=== PATIENT | female | born 1945 | race Caucasian/White ===

== ENCOUNTER → 2016-08-22 | Outpatient (CLI) | payer OTHER | LOC: LAB 17:32 | PROVIDERS: ATTEND Internal Medicine Gastroenterology | DX: D64.89 Other specified anemias (principal) | CPT/HCPCS: 82270 ==

== ENCOUNTER 2016-11-23 07:15 | Day surgery (SDC) | payer OTHER ==
[2016-11-23] MEDS ORDERED: NS 1000 ML 1,000 ML ONE (07:38)
[2016-11-23] MEDS ORDERED: DIPRIVAN VIAL 20 ML ONE (09:11)
[2016-11-23] MEDS ORDERED: DIPRIVAN VIAL 10 ML ONE (09:40)
[2016-11-23 11:41] VITALS: BP 120/60
== END 2016-11-23 10:10 | disposition home or self-care (01) ==
LOC: SURG1 07:15
PROVIDERS: ATTEND Internal Medicine Gastroenterology
PROC: 0DJD8ZZ Inspection of Lower Intestinal Tract, Via Natural or Artificial Opening Endoscopic (ICD-10-PCS; principal; 2016-11-23 07:30)
PROC: 0DBM8ZX Excision of Descending Colon, Via Natural or Artificial Opening Endoscopic, Diagnostic (ICD-10-PCS; principal; 2016-11-23 07:30)
PROC: 0DBN8ZX Excision of Sigmoid Colon, Via Natural or Artificial Opening Endoscopic, Diagnostic (ICD-10-PCS; principal; 2016-11-23 07:30)
DX: K92.1 Melena (principal); Z80.0 Family history of malignant neoplasm of digestive organs; Z86.010 Personal history of colon polyps; K63.5 Polyp of colon; K64.0 First degree hemorrhoids
CPT/HCPCS: 99100; A4217; J3490

== ENCOUNTER → 2017-01-24 | Outpatient (CLI) | payer OTHER ==
--- NOTE | 2017-01-25 09:42 | MRI ---
STUDY: MRI OF THE BRAIN WITHOUT GADOLINIUM HISTORY: Tremors. Blurred vision. Technique: Multiplanar multi-sequence MRI of the brain was obtained utilizing standard departmental p rotocol. Sagittal and axial T1, axial T2, FLAIR, diffusion (DWI/ADC) images through the brain were pe rformed. Comparison: None. Findings: The sulci, cisterns and ventricles are prominent consistent with diffuse volume loss. There are confl uent and scattered foci of T2 prolongation in the periventricular and subcortical white matter of bot h hemispheres. This is a nonspecific finding which likely represents microangiopathic change in a pat ient of this age. There are old lacunar infarcts versus prominent [place]ny spaces in the right posterior putamen a nd right thalamus. There is no evidence of acute territorial infarction, hemorrhage, mass, mass effec t, or midline shift. There are no abnormal intra-axial or extra-axial fluid collections. The major intracranial vascular flow voids appear intact. The vertebral arteries are codominent. Ther e is bilateral aphakia. IMPRESSION: 1. No evidence of acute intracranial abnormality. 2. Old lacunar infarcts versus prominent Virchow Tonny spaces in the right putamen and right thalamu s. 3. Nonspecific white matter change and volume loss. Reported By:
== END ==
LOC: RAD 15:25
PROVIDERS: ATTEND Psychiatry & Neurology Neurology
DX: R25.1 Tremor, unspecified (principal)
CPT/HCPCS: 70551

== ENCOUNTER → 2017-01-29 | Outpatient (CLI) | payer OTHER | LOC: RAD 14:00 | PROVIDERS: ATTEND Psychiatry & Neurology Neurology | DX: R25.1 Tremor, unspecified (principal) | CPT/HCPCS: 95819 ==

== ENCOUNTER 2022-05-09 14:19 | Observation (INO) ==
[2022-05-09] MEDS ORDERED: NS 500 ML IV 500 ML IV ONE ×4 (14:36→16:21)
--- NOTE | 2022-05-09 14:38 | DR.GENAD ---
HPI Time Seen Time Seen by Provider: 05/09/22 14:35 Complaint/Symptoms Chief Complaint Doctors Comments: 77 y/o female brought in for evaluation. Has a recent left humerus fracture. Her sister wasw taking her to the orthopedist, pt was speaking gibberish. She could think of what she wanted to say, but wasn't able to say it. Lasted several minutes. Better now. Denies headache, fever, chills, URI symptoms, nausea, vomiting, diarrhea or urinary difficulties. Pt lives by herself, states she can't live alone anymore. Sister lives across the street, feels the pt is worrying all the time. Nurses notes reviewed Nurses Notes Review: Yes Source History Provided: Patient and Family Member Mode of Arrival Mode of Arrival: Wheelchair PMH PMH Past Medical History: Anxiety, Arthritis, Diabetes, Dyslipidemia, GERD, Hypertension and Hypothyroidism Past Surgical History: Yes Surgical History: Cholecystectomy, Hysterectomy and Other Family History Family Medical History: Diabetes Mellitus Social History Do you use any recreational Drugs:: No ROS Review of Systems Constitutional: Weakness Eyes: No Symptoms Reported ENTM: No Symptoms Reported Respiratoy: No Symptoms Reported Cardiovascular: No Symptoms Reported Gastrointestinal/Abdominal: No Symptoms Reported Genitourinary: No Symptoms Reported Neurological: Speech Problem Musculoskeletal: No Symptoms Reported Integumentary: No Symptoms Reported Hematologic/Lymphatic: No Symptoms Reported All Other Systems: Reviewed and Negative PE Vital Signs Vitals: Temperature 97.7 F Pulse Rate 87 Respiratory Rate 45 Blood Pressure [Left Arm] 116/70 Blood Pressure 132/59 O2 Sat by Pulse Oximetry 100 General General Appearance: Alert and In No Apparent Distress Head Head Exam: Normal Inspection Eyes Eye exam: PERRL and EOMI ENT ENT Exam: Normal Oropharynx and Mucous Membranes Moist Neck Neck Exam: Normal Inspection and Full ROM; negative Tenderness Respiratory Respiratory Exam: Normal Lung Sounds Bilat; negative Accessory Muscle Use or Respiratory Distress Cardiovascular Cardiovascular Exam: Regular Rate, Normal Rhythm and Normal Heart Sounds Abdominal Exam Abdominal Exam: Normal Bowel Sounds and Soft; negative Tenderness Extremities Extremities Exam: Other (LUE in sling for humerus fracture. ); negative Edema Neurologic Neurological Exam: Alert, Oriented X3 and CN II-XII Intact; negative Motor Sensory Deficit Skin Skin Exam: Warm and Dry COURSE Treatment Treatment: 77 y/o female with recent L humerus fracture, had what sounds like a TIA earlier today. Was having degree of expressive aphasia, resolved now. BP was a bit low on arrival, pt admits to not eating or drinking well. Was given IV fluids, W/u initiated. 1637 - Pt's glucose poorly controlled at 362, was given 4 U regular insulin SC. BP higher after IV fluid bolus given, additional IV fluids given. Pt states she cannot live by herself anymore, would like to be admitted for rehab services. Discussed with her attending, Dr Mckenna. He will admit for glucose control, hydration, and pursue w/u for possible TIA/CVA. ROR Labs Reviewed Laboratory Results Reviewed?: Yes Result Diagrams: 05/09/22 14:50 05/09/22 14:50 Laboratory: WBC 8.3 X10^3/uL (3.6-10.0) 05/09/22 14:50 RBC 3.32 X10^6/uL (3.5-5.4) L 05/09/22 14:50 Hgb 9.9 g/dL (12.0-16.0) L 05/09/22 14:50 Hct 30.0 % (36.0-47.0) L 05/09/22 14:50 MCV 90.2 fL (80.0-100.0) 05/09/22 14:50 MCH 29.9 pg (27.0-34.0) 05/09/22 14:50 MCHC 33.2 g/dL (33.0-35.0) 05/09/22 14:50 RDW 14.5 % (11.6-16.5) 05/09/22 14:50 Plt Count 389 X10^3/uL (150.0-450.0) 05/09/22 14:50 MPV 8.1 fL (7.4-11.0) 05/09/22 14:50 Neut % (Auto) 79.9 % (42.0-75.0) H 05/09/22 14:50 Lymph % (Auto) 11.0 % (21.0-51.0) L 05/09/22 14:50 [place] % (Auto) 8.2 % (0.0-13.0) 05/09/22 14:50 Eos % (Auto) 0.1 % (0.9-2.9) L 05/09/22 14:50 Baso % (Auto) 0.8 % (0.2-1.0) 05/09/22 14:50 Neut # (Auto) 6.6 x10^3/uL (2.2-4.8) H 05/09/22 14:50 Lymph # (Auto) 0.9 X10^3/uL (1.3-2.9) L 05/09/22 14:50 [place] # (Auto) 0.7 x10^3/uL (0.3-0.8) 05/09/22 14:50 Eos # (Auto) 0.0 x10^3/uL (0.0-0.2) 05/09/22 14:50 Baso # (Auto) 0.1 X10^3/uL (0.0-0.1) 05/09/22 14:50 Absolute Nucleated RBC 0.0 /100WBC 05/09/22 14:50 Sample Site Rb 05/09/22 16:18 ABG pH 7.550 (7.35-7.45) H 05/09/22 16:18 ABG pCO2 24.0 mmHg (35.0-45.0) L 05/09/22 16:18 ABG pO2 106.0 mmHg (80.0-100.0) H 05/09/22 16:18 ABG HCO3 21.0 mmol/L (22-26) L 05/09/22 16:18 ABG O2 Saturation 99.0 % (90-100) 05/09/22 16:18 ABG Base Excess 0.0 mmol/L (-2.0-2.0) 05/09/22 16:18 Gelacio Test Pos 05/09/22 16:18 A-a Gradient 14.0 mmHg 05/09/22 16:18 FiO2 21.0 05/09/22 16:18 Blood Gas Comments . sd 05/09/22 16:18 Sodium 132 mmol/L (136-145) L 05/09/22 14:50 Corrected Sodium 138 mmol/L (136-145) 05/09/22 14:50 Potassium 3.7 mmol/L (3.5-5.1) 05/09/22 14:50 Chloride 97 mmol/L (98-107) L 05/09/22 14:50 Carbon Dioxide 20.3 mmol/L (21-32) L 05/09/22 14:50 BUN 16 mg/dL (7-18) 05/09/22 14:50 Creatinine 1.23 mg/dL (0.55-1.02) H 05/09/22 14:50 Est GFR (MDRD) Af Amer 55 (>60) L 05/09/22 14:50 Est GFR (MDRD) Non-Af 45 (>60) L 05/09/22 14:50 Glucose 362 mg/dL (65-99) H 05/09/22 14:50 POC Glucose (mg/dL) 334 mg/dL (65-99) H 05/09/22 14:40 Calcium 8.5 mg/dL (8.5-10.1) 05/09/22 14:50 Corrected Calcium 9.6 mg/dL (8.5-10.1) 05/09/22 14:50 Total Bilirubin 0.70 mg/dL (0.2-1.0) 05/09/22 14:50 AST 60 Units/L (15-37) H 05/09/22 14:50 ALT 43 Units/L (12-78) 05/09/22 14:50 Alkaline Phosphatase 82 Units/L (46-116) 05/09/22 14:50 Troponin I High Sens 6.8 ng/L (4.0-60.0) 05/09/22 14:50 Total Protein 6.5 g/dL (6.4-8.2) 05/09/22 14:50 Albumin 2.6 g/dL (3.4-5.0) L 05/09/22 14:50 Globulin 3.9 g/dL (2.5-4.5) 05/09/22 14:50 Albumin/Globulin Ratio 0.7 Ratio (1.1-2.1) L 05/09/22 14:50 Lipase 144 Units/L (73-393) 05/09/22 14:50 Specimen Type Catherized urine 05/09/22 15:30 Urine Color Yellow (YELLOW) 05/09/22 15:30 Urine Appearance Clear (CLEAR) 05/09/22 15:30 Urine pH 5.0 (5.0 - 8.0) 05/09/22 15:30 Ur Specific Melba 1.015 (1.000-1.030) 05/09/22 15:30 Urine Protein Negative (NEGATIVE) 05/09/22 15:30 Urine Glucose (UA) 4+ (NEGATIVE) 05/09/22 15:30 Urine Ketones 3+ (NEGATIVE) 05/09/22 15:30 Urine Blood Negative (NEGATIVE) 05/09/22 15:30 Urine Nitrite Negative (NEGATIVE) 05/09/22 15:30 Urine Bilirubin Negative (NEGATIVE) 05/09/22 15:30 Urine Urobilinogen Normal (NORMAL) 05/09/22 15:30 Ur Leukocyte Esterase Negative (NEGATIVE) 05/09/22 15:30 glucose 362. U/a - + for ketones, glucose. EKG Rate: 91 [place]: Normal Rhythm: NSR Block: None Hypertrophy: None ST: Normal Opioid Opioid Risk Tool Age (Tyree box if 16-45): No History of Preadolescent Sexual Abuse: No Total: 0 Total Score Risk Category: Low Risk Copyright: [facility] predicting aberrant behaviors Discharge Plan Diagnosis Discharge Problem: Poorly controlled diabetes mellitus, Dehydration Discharge Plan Patient Disposition: ADMITTED INPATIENT Condition: Stable
[2022-05-09 14:44] VITALS: BMI 31.9
[2022-05-09 15:00] LABS: BASOPHILS # (AUTO) 0.1 X10^3/uL (0.0-0.1); BASOPHILS % (AUTO) 0.8 % (0.2-1.0); EOSINOPHILS % (AUTO) 0.1 % (0.9-2.9); HEMOGLOBIN 9.9 g/dL (12.0-16.0); LYMPHOCYTES # (AUTO) 0.9 X10^3/uL (1.3-2.9); MEAN CORPUSCULAR HEMOGLOBIN 29.9 pg (27.0-34.0); MEAN CORPUSCULAR HGB CONC 33.2 g/dL (33.0-35.0); MEAN CORPUSCULAR VOLUME 90.2 fL (80.0-100.0); MEAN PLATELET VOLUME 8.1 fL (7.4-11.0); MONOCYTES # (AUTO) 0.7 x10^3/uL (0.3-0.8); MONOCYTES % (AUTO) 8.2 % (0.0-13.0); NEUTROPHILS # (AUTO) 6.6 x10^3/uL (2.2-4.8); NEUTROPHILS % (AUTO) 79.9 % (42.0-75.0); RED BLOOD COUNT 3.32 X10^6/uL (3.5-5.4); RED CELL DISTRIBUTION WIDTH 14.5 % (11.6-16.5); WHITE BLOOD COUNT 8.3 X10^3/uL (3.6-10.0)
--- NOTE | 2022-05-09 15:04 | EKG ---
Test Reason : altered ms Blood Pressure : */* mmHG Vent. Rate : 91 BPM Atrial Rate : 91 BPM P-R Int : 142 ms QRS Dur : 84 ms QT Int : 326 ms P-R-T Axes : 57 24 17 degrees QTc Int : 400 ms Normal sinus rhythm Normal ECG No previous ECGs available Confirmed by Theodore Rios ([id number]) on 05/16/2022 5:56:51 PM Referred By: Confirmed By: Theodore Rios
[2022-05-09 15:13] LABS: ALBUMIN 2.6 g/dL (3.4-5.0); CALCIUM 8.5 mg/dL (8.5-10.1); CARBON DIOXIDE 20.3 mmol/L (21-32); COR CA(FOR HYPOALB) 9.6 mg/dL (8.5-10.1); CREATININE 1.23 mg/dL (0.55-1.02); TOTAL PROTEIN 6.5 g/dL (6.4-8.2)
[2022-05-09 15:56] LABS: BILIRUBIN,URINE NEGATIVE (NEGATIVE); BLOOD/HEMOGLOBIN,URINE NEGATIVE (NEGATIVE); GLUCOSE, URINE 4+ (NEGATIVE); KETONES,URINE 3+ (NEGATIVE); LEUKOCYTE ESTERASE ,URINE NEGATIVE (NEGATIVE); NITRITES,URINE NEGATIVE (NEGATIVE); PROTEIN,URINE NEGATIVE (NEGATIVE); UROBILINOGEN,URINE NORMAL (NORMAL)
[2022-05-09 16:04] LABS: APPEARANCE,URINE CLEAR (CLEAR); COLOR,URINE YELLOW (YELLOW)
[2022-05-09] MEDS ORDERED: NovoLIN R (or HumuLIN R) SUBCUT ONE (16:18)
[2022-05-09] MEDS ORDERED: NovoLIN R (or HumuLIN R) ONE ×2 (16:21→16:22)
--- NOTE | 2022-05-09 16:55 | CT ---
HISTORYAltered mental statusSTUDYCT brain without contrastCOMPARISONNoneTECHNIQUEMultiple axial images of the brain were obtained from the skull base to the vertex [without] administration of IV contrast.Dose reduction techniques including Automated Exposure Control (AEC) and adjustment of mA and kV were utlized.FINDINGS[No acute intraparenchymal hemorrhage or mass can be identified.] [No extra-axial fluid collections are seen.] [No alteration in the attenuation of the brain parenchyma can be identified to suggest acute or subacute ischemic change.] Mild small vessel ischemic changes and age-appropriate atrophy are noted. There is an old lacunar infarct versus perivascular space in the right basal ganglia. [The ventricular system is symmetric and nondilated.] [Small left mastoid air cell effusion is notedIMPRESSION[No acute intracranial process can be identified.]Electronically signed by: KRYS VINCENT (May 09, 2022 16:53:07)
--- NOTE | 2022-05-09 16:55 | RAD ---
HISTORYRelevant Clinical Information ALTERED MENTAL STATUSSTUDYCHEST, 1 VIEWCOMPARISONAugust FINDINGSThe trachea is midline. The cardiac silhouette is stable. The lungs are clear without focal infiltrate or effusion. The bony thorax is unremarkable.IMPRESSIONNo acute cardiopulmonary disease.Electronically signed by: KRYS VINCENT (May 09, 2022 16:53:33)
[2022-05-09 17:01] LABS: ABG ALLEN TEST POS
[2022-05-09] MEDS ORDERED: NovoLIN R (or HumuLIN R) SUBCUT PRN (17:39)
[2022-05-09] MEDS: NS 1,000 ML IV 1,000 ML IV SCH (18:23)
[2022-05-09] MEDS: SNACK - Diabetic Appropriate PO SCH (20:21)
[2022-05-09] MEDS ORDERED: KLOR-CON PO PRN (23:25)
[2022-05-09] MEDS ORDERED: POTASSIUM CHLORIDE LIQ 20 MEQ UDC PO PRN (23:25)
[2022-05-09] MEDS ORDERED: MICRO K EXTEN CAP 10 MEQ PO PRN (23:25)
[2022-05-09] MEDS ORDERED: K-RIDER 10 MEQ/NS 100 ML 10 MEQ/100 ML BAG IV PRN (23:25)
[2022-05-09] MEDS ORDERED: K-DUR TAB 20 MEQ PO PRN (23:25)
[2022-05-10 06:10] LABS: RED CELL DISTRIBUTION WIDTH 14.8 % (11.6-16.5)
[2022-05-10 06:14] LABS: BASOPHILS # (AUTO) 0.1 X10^3/uL (0.0-0.1); BASOPHILS % (AUTO) 1.1 % (0.2-1.0); EOSINOPHILS # (AUTO) 0.1 x10^3/uL (0.0-0.2); EOSINOPHILS % (AUTO) 1.2 % (0.9-2.9); HEMATOCRIT 26.4 % (36.0-47.0); LYMPHOCYTES # (AUTO) 1.6 X10^3/uL (1.3-2.9); LYMPHOCYTES % (AUTO) 30.7 % (21.0-51.0); MEAN CORPUSCULAR HEMOGLOBIN 30.2 pg (27.0-34.0); MEAN CORPUSCULAR HGB CONC 34.1 g/dL (33.0-35.0); MEAN CORPUSCULAR VOLUME 88.6 fL (80.0-100.0); MEAN PLATELET VOLUME 8.1 fL (7.4-11.0); MONOCYTES # (AUTO) 0.5 x10^3/uL (0.3-0.8); MONOCYTES % (AUTO) 10.1 % (0.0-13.0); NEUTROPHILS % (AUTO) 56.9 % (42.0-75.0); RED BLOOD COUNT 2.98 X10^6/uL (3.5-5.4); WHITE BLOOD COUNT 5.2 X10^3/uL (3.6-10.0)
[2022-05-10 06:18] LABS: ALANINE AMINOTRANSFERASE 33 Units/L (12-78); ALBUMIN 2.2 g/dL (3.4-5.0); ALKALINE PHOSPHATASE 75 Units/L (46-116); ASPARTATE AMINO TRANSFERASE 40 Units/L (15-37); BLOOD UREA NITROGEN 12 mg/dL (7-18); CALCIUM 7.8 mg/dL (8.5-10.1); CARBON DIOXIDE 23.3 mmol/L (21-32); CHLORIDE 105 mmol/L (98-107); COR CA(FOR HYPOALB) 9.2 mg/dL (8.5-10.1); COR NA(FOR HYPERGLY) 140 mmol/L (136-145); CREATININE 0.91 mg/dL (0.55-1.02); MAGNESIUM 0.6 mg/dL (2.0-2.9); SODIUM 139 mmol/L (136-145); TOTAL PROTEIN 5.6 g/dL (6.4-8.2); eGFR NON BLACK RACES > 60 (>60)
[2022-05-10] MEDS: NS 1,000 ML IV 1,000 ML IV SCH ×2 (06:24→21:27)
[2022-05-10] MEDS ORDERED: SITAGLIPTIN PHOS METFORMIN PO SCH (09:00)
[2022-05-10] MEDS ORDERED: [UNRECOGNIZED DRUG - OTHER] PO SCH (09:00)
[2022-05-10] MEDS: JANUVIA PO SCH (14:56)
[2022-05-10] MEDS: TRICOR TAB 145 MG PO SCH (14:56)
[2022-05-10] MEDS: SYNTHROID 50 mcg TAB PO SCH (14:56)
[2022-05-10] MEDS: PROTONIX TAB 40 MG PO SCH (14:57)
[2022-05-10] MEDS: GLUCOPHAGE XR 24-HR PO SCH (14:57)
[2022-05-10] MEDS: OXYBUTYNIN CHLORIDE ER PO SCH (14:57)
[2022-05-10] MEDS: FOLIC ACID TAB 1 MG PO SCH (14:57)
[2022-05-10] MEDS: SNACK - Diabetic Appropriate PO SCH (21:00)
[2022-05-10] MEDS: MAGNESIUM SULFATE 1 GRAM/100 mL PREMIX 1 G/100 ML BAG IV PRN ×3 (21:21→23:31)
[2022-05-10] MEDS: LIPITOR TAB 40 MG PO SCH (21:22)
[2022-05-10] MEDS: ZESTRIL TAB 5 MG PO SCH (21:22)
[2022-05-11] MEDS: MAGNESIUM SULFATE 1 GRAM/100 mL PREMIX 1 G/100 ML BAG IV PRN ×7 (00:36→07:05)
[2022-05-11 06:11] LABS: BASOPHILS # (AUTO) 0.1 X10^3/uL (0.0-0.1); BASOPHILS % (AUTO) 1.1 % (0.2-1.0); EOSINOPHILS # (AUTO) 0.1 x10^3/uL (0.0-0.2); EOSINOPHILS % (AUTO) 1.7 % (0.9-2.9); HEMATOCRIT 28.1 % (36.0-47.0); HEMOGLOBIN 9.4 g/dL (12.0-16.0); LYMPHOCYTES # (AUTO) 1.5 X10^3/uL (1.3-2.9); LYMPHOCYTES % (AUTO) 24.5 % (21.0-51.0); MEAN CORPUSCULAR HEMOGLOBIN 29.8 pg (27.0-34.0); MEAN CORPUSCULAR HGB CONC 33.3 g/dL (33.0-35.0); MEAN CORPUSCULAR VOLUME 89.4 fL (80.0-100.0); MEAN PLATELET VOLUME 8.6 fL (7.4-11.0); MONOCYTES # (AUTO) 0.5 x10^3/uL (0.3-0.8); MONOCYTES % (AUTO) 8.8 % (0.0-13.0); NEUTROPHILS # (AUTO) 3.8 x10^3/uL (2.2-4.8); NEUTROPHILS % (AUTO) 63.9 % (42.0-75.0); RED BLOOD COUNT 3.14 X10^6/uL (3.5-5.4)
[2022-05-11 06:13] LABS: ALANINE AMINOTRANSFERASE 35 Units/L (12-78); ALBUMIN 2.2 g/dL (3.4-5.0); ALKALINE PHOSPHATASE 100 Units/L (46-116); ASPARTATE AMINO TRANSFERASE 44 Units/L (15-37); BLOOD UREA NITROGEN 9 mg/dL (7-18); CALCIUM 8.2 mg/dL (8.5-10.1); CARBON DIOXIDE 25.1 mmol/L (21-32); CHLORIDE 106 mmol/L (98-107); COR CA(FOR HYPOALB) 9.6 mg/dL (8.5-10.1); COR NA(FOR HYPERGLY) 141 mmol/L (136-145); CREATININE 0.82 mg/dL (0.55-1.02); SODIUM 138 mmol/L (136-145); TOTAL PROTEIN 5.8 g/dL (6.4-8.2); eGFR NON BLACK RACES > 60 (>60)
[2022-05-11] MEDS: JANUVIA PO SCH (08:54)
[2022-05-11] MEDS: FOLIC ACID TAB 1 MG PO SCH (08:54)
[2022-05-11] MEDS: SYNTHROID 50 mcg TAB PO SCH (08:55)
[2022-05-11] MEDS: PROTONIX TAB 40 MG PO SCH (08:55)
[2022-05-11] MEDS: TRICOR TAB 145 MG PO SCH (08:55)
[2022-05-11] MEDS: NS 1,000 ML IV 1,000 ML IV SCH ×2 (08:57→20:52)
[2022-05-11] MEDS: GLUCOPHAGE XR 24-HR PO SCH (08:57)
[2022-05-11] MEDS: OXYBUTYNIN CHLORIDE ER PO SCH (08:58)
--- NOTE | 2022-05-11 11:19 | DR.H&P ---
H&P - History & Physical for Day of: H&P Date: 05/09/22 - Chief Complaint Chief Complaint: FREQUENT FALLS, WEAKNESS, AMS, SLURRED SPEECH - History of Present Illness History of Present Illness: IS A 77 YEAR OLD PATIENT OF OURS. SHE PRE SENTED TO THE ER WITH COMPLAINTS OF FREQUENT FALLS, WEAKNESS, ALTERED MENTAL STATUS, AND SLURRED SPEECH. PATIENTS FAMILY MEMBER REPORTS THAT THE EPISODE OF AMS AND SLURRED SPEECH LASTED FOR SEVERAL MINUTES. THEY REPORT THAT SHE HAD DIFFICULTY FORMING HER WORDS. IT HAS NOW RESOLVED. PATIENT DENIES HEADACHE, FEVER, CHILLS, URI SYMPTOMS, NAUSE, VOMITING, DIARRHEA, OR URINARY DIFFICULTIES. PATIENT IS NOTED TO HAVE A SLING ON THE LEFT ARM. SHE REPORTS HAVING A RECENT LEFT HUMERUS FRACTURE. HER PMH INCLUDES ANXIETY, ARTHRITIS, DM II, DYSLIPIDEMIA, GERD, HTN, HYPOTHYROIDISM, CHOLECYSTECTOMY, AND HYSTERECTOMY. ON ARRIVAL TO THE ER, VITALS WERE: 97.7-115-20-98%-88/52. LABS WERE OBTAINED. WBC 8.3, RBC 3.32, HGB 9.9, HCT 30.0, SODIUM 132, POTASSIUM 3.7, CHLORIDE 97, CARBON DIOXIDE 20.3, BUN 16, CREATININE 1.23, GLUCOSE 362, CALCIUM 8.5, TOTAL BILI 0.70, AST 60, ALT 43, ALK PHOS 82, TOTAL PROTEIN 6.5, ALBUMIN 2.6. ABG OBTAINED AND REVEALED: PH 7.550, PC02 24, P02 106, HC03 21.0, 02 SAT 99, FI02 21.0. URINALYSIS OBTAINED AND REVEALED: GLUCOSE 4+, KETONES 3+, OTHERWISE NORMAL. A CHEST XRAY WAS OBTAINED AND REVEALED NO ACUTE CARDIOPULMONARY DISEASE. A BRAIN CT WAS OBTAINED AND REVEALED: No acute intraparenchymal hemorrhage or mass can be identified. No extra-axial fluid collections are seen. No alteration in the attenuation of the brain parenchyma can be identified to suggest acute or subacute ischemic change.] Mild small vessel ischemic changes and age-appropriate atrophy are noted. There is an old lacunar infarct versus perivascular space in the right basal ganglia. The ventricular system is symmetric and nondilated. Small left mastoid air cell effusion is noted. SHE WAS ADMITTED TO THE HOSPITAL FOR FURTHER EVALUATION AND TREATMENT OF DEHYDRATION, UNCONTROLLED DM II, AND TIA. SHE WAS STARTED ON NORMAL SALINE AT 80 ML/HR, THE POTASSIUM AND MAGNESIUM PROTOCOLS, HUMULIN R SLIDING SCALE, OTBS ACHS. HER HOME MEDICATIONS OF LIPITOR, TRICOR, FOLIC ACID, SYNTHROID, ZESTRIL, GLUCOPHAGE, OXYBUTYNIN, PROTONIX, AND JANUVIA WERE RESUMED. WE PLAN TO FOLLOW-UP WITH AM LABS AND CONTINUE TO MONITOR. TIME SPENT ON CLINICAL ASSESSMENT, REVIWING LABS AND IMAGING, DECISION MAKING, AND DOCUMENTATION GREATER THAN 75 MINUTES. - Past Medical History Past Medical History: Hypertension, Dyslipidemia, Diabetes, Anxiety, Hypothyroidism, GERD, Arthritis - Past Surgical History Surgical History: Cholecystectomy, Hysterectomy - Family History Family Medical History: Diabetes Mellitus - Social History Does patient currently use any type of tobacco product: No Have you used tobacco products in the last 12 months: No Type of Tobacco Use: None Does any household member use tobacco: No Alcohol Use: None Drug Use: None - Medications Home Medications: No Known Drug Allergies Allergy (Verified 01/26/20 17:57) CONTINUE taking the following medications dapagliflozin 10 mg tablet (Farxiga) 1 tab PO QDAY 05/09/22 [History] - Review of Systems Constitutional: Weakness Eyes: No Symptoms Reported ENT: No Symptoms Reported Respiratory: No Symptoms Reported Cardiovascular: No Symptoms Reported Gastrointestinal: No Symptoms Reported Genitourinary: No Symptoms Reported Musculoskeletal: See HPI, Arm Pain Skin: No Symptoms Reported Neurological: See HPI, Weakness, Change in Speech, Confusion - Physical Exam Vital Signs: Temperature 98.0 F Pulse Rate [Right Brachial] 96 Pulse Rate 93 Respiratory Rate 20 Blood Pressure [Right Arm] 148/62 Blood Pressure [Left Arm] 116/70 Blood Pressure 132/59 O2 Sat by Pulse Oximetry 98 Oriented: Normal Eyes: Normal Ear: Normal Nose: Normal Throat: Normal Respiratory: Clear Throughout Cardiovascular: Tachycardia : Normal Auscultation: Bowel Sounds: Normal Palpation: Normal Skin: Normal Musculoskeletal: Left, Arm, Tender (RECENT LEFT HUMERUS FX ) Psychiatric: Normal Mood Description: Calm Affect: Normal Speech Pattern: Clear - Assessment/Plan (1) Dehydration Status: Acute Plan: ADMIT, NORMAL SALINE AT 80 ML/HR, THE POTASSIUM AND MAGNESIUM PROTOCOLS, HUMULIN R SLIDING SCALE, OTBS ACHS. HER HOME MEDICATIONS OF LIPITOR, TRICOR, FOLIC ACID, SYNTHROID, ZESTRIL, GLUCOPHAGE, OXYBUTYNIN, PROTONIX, AND JANUVIA WERE RESUMED. (2) Generalized weakness Status: Acute (3) Frequent falls Status: Acute (4) TIA (transient ischemic attack) Status: Acute (5) Diabetes mellitus type 2, uncontrolled Qualifiers: Glycemic state: with hyperglycemia Qualified Code(s): E11.65 - Type 2 diabetes mellitus with hyperglycemia Status: Chronic - Allergies Allergies/Adverse Reactions: Allergies Allergy/AdvReac Type Severity Reaction Status Date / Time No Known Drug Allergies Allergy Verified 01/26/20 17:57
--- NOTE | 2022-05-11 11:34 | CT ---
HISTORY:AMS, slurred speech, weaknessStudy: CT brain without contrastComparison:05/09/2022Technique:Multiple axial images of the brain were obtained without administration of IV contrast. Dose reduction techniques including Automated Exposure Control (AEC) and adjustment of mA and kV were utilized.Findings:There is cerebral volume loss with nonspecific white matter hypoattenuation that can be associated with chronic microvascular ischemic changes. There is a chronic right subinsular hypodensities suggesting lacunar infarct or dilated perivascular space. No evidence of acute hemorrhage, midline shift, mass effect or abnormal extra-axial fluid collection. The ventricular system is symmetric and nondilated.The soft tissues and osseous structures are unremarkable. The visualized paranasal sinuses are clear.IMPRESSION:Cerebral volume loss and microvascular ischemic changes as described. No acute intracranial hemorrhage.Electronically signed by: FRANK GHOTRA (May 11, 2022 11:32:25)
[2022-05-11] MEDS: LIPITOR TAB 40 MG PO SCH (20:53)
[2022-05-11] MEDS: ZESTRIL TAB 5 MG PO SCH (20:53)
[2022-05-11] MEDS: SNACK - Diabetic Appropriate PO SCH (20:54)
[2022-05-12 05:15] LABS: BASOPHILS % (AUTO) 0.6 % (0.2-1.0); EOSINOPHILS # (AUTO) 0.2 x10^3/uL (0.0-0.2); EOSINOPHILS % (AUTO) 2.9 % (0.9-2.9); HEMOGLOBIN 10.3 g/dL (12.0-16.0); LYMPHOCYTES # (AUTO) 1.8 X10^3/uL (1.3-2.9); LYMPHOCYTES % (AUTO) 28.9 % (21.0-51.0); MEAN CORPUSCULAR HEMOGLOBIN 29.9 pg (27.0-34.0); MEAN CORPUSCULAR HGB CONC 33.1 g/dL (33.0-35.0); MEAN CORPUSCULAR VOLUME 90.2 fL (80.0-100.0); MONOCYTES # (AUTO) 0.4 x10^3/uL (0.3-0.8); MONOCYTES % (AUTO) 6.9 % (0.0-13.0); NEUTROPHILS # (AUTO) 3.8 x10^3/uL (2.2-4.8); NEUTROPHILS % (AUTO) 60.7 % (42.0-75.0); RED BLOOD COUNT 3.43 X10^6/uL (3.5-5.4); WHITE BLOOD COUNT 6.2 X10^3/uL (3.6-10.0)
[2022-05-12 05:31] LABS: ALANINE AMINOTRANSFERASE 42 Units/L (12-78); ALBUMIN 2.4 g/dL (3.4-5.0); ALKALINE PHOSPHATASE 123 Units/L (46-116); ASPARTATE AMINO TRANSFERASE 44 Units/L (15-37); BLOOD UREA NITROGEN 9 mg/dL (7-18); CALCIUM 8.3 mg/dL (8.5-10.1); CARBON DIOXIDE 26.4 mmol/L (21-32); CHLORIDE 108 mmol/L (98-107); COR CA(FOR HYPOALB) 9.6 mg/dL (8.5-10.1); COR NA(FOR HYPERGLY) 145 mmol/L (136-145); CREATININE 0.91 mg/dL (0.55-1.02); MAGNESIUM 1.6 mg/dL (2.0-2.9); SODIUM 143 mmol/L (136-145); TOTAL PROTEIN 6.2 g/dL (6.4-8.2); eGFR NON BLACK RACES > 60 (>60)
[2022-05-12] MEDS: MAGNESIUM SULFATE 1 GRAM/100 mL PREMIX 1 G/100 ML BAG IV PRN ×2 (09:06→10:24)
[2022-05-12] MEDS: JANUVIA PO SCH (09:07)
[2022-05-12] MEDS: SYNTHROID 50 mcg TAB PO SCH (09:07)
[2022-05-12] MEDS: PROTONIX TAB 40 MG PO SCH (09:07)
[2022-05-12] MEDS: TRICOR TAB 145 MG PO SCH (09:07)
[2022-05-12] MEDS: FOLIC ACID TAB 1 MG PO SCH (09:07)
[2022-05-12] MEDS: GLUCOPHAGE XR 24-HR PO SCH (09:07)
[2022-05-12] MEDS: OXYBUTYNIN CHLORIDE ER PO SCH (09:08)
[2022-05-12] MEDS: NS 1,000 ML IV 1,000 ML IV SCH ×2 (09:09→09:38)
[2022-05-12 11:48] VITALS: BP 135/61
== END 2022-05-12 12:55 ==
LOC: ER 14:19 → MED/SURG 14:19
PROVIDERS: ADMIT Internal Medicine; ATTEND Internal Medicine
DX: R29.6 Repeated falls; R26.89 Other abnormalities of gait and mobility; G45.8 Other transient cerebral ischemic attacks and related syndromes; E78.2 Mixed hyperlipidemia; E11.65 Type 2 diabetes mellitus with hyperglycemia; E03.8 Other specified hypothyroidism; E86.0 Dehydration; K21.9 Gastro-esophageal reflux disease without esophagitis; R53.1 Weakness; R41.82 Altered mental status, unspecified; I10 Essential (primary) hypertension

== ENCOUNTER 2022-06-04 15:55 | Observation (INO) ==
[2022-06-04 16:13] VITALS: BMI 28.6
--- NOTE | 2022-06-04 16:33 | DR.EXTPAIN ---
HPI Time seen Time Seen by Provider: 06/04/22 16:29 PCP Primary Care Physician: FADI HPI Comment HPI Comment: A 77 y/o female presents with c/o feeling drunk, dizzy and falling upon arising from a supine or sitting position. She denies palpitationsor tinnitus. These symptoms have been ongoing x 5 days. Complaint/Symptoms Chief Complaint:: PT BROUGHT IN BY [facility] WITH C/O OF NOT BEING ABLE TO WALK WITHOUT FALLING. PT STATES SHE IS FINE WHEN SHE LAYING DOWN BUT SOON SHE GETS UP TO WALK SHE GETS DIZZY AND FALLS. COVID-19 Coronavirus risk:travel/contact w/high risk person: No Has patient experienced Coronavirus symptoms: No Nurses notes reviewed Nurses Notes Review: Yes Source History Provided: Patient Mode of arrival Mode of Arrival: Stretcher Timing Onset of Chief Complaint: 05/30/22 Context History of: None Associated signs and symptoms Associated Signs and Symptoms: None PMH PMH Past Medical History: Yes Past Medical History: Anxiety, Arthritis, Dementia, Diabetes, Dyslipidemia, GERD, Hypertension and Hypothyroidism Past Surgical History: Yes Surgical History: Cholecystectomy and Hysterectomy Family History History of Family Medical Conditions: Yes Family Medical History: Diabetes Mellitus Social History Does patient currently use any type of tobacco product: No Have you used tobacco products in the last 12 months: No Type of Tobacco Use: None Does any household member use tobacco: No Alcohol Use: None Do you use any recreational Drugs:: No Lives With: Alone Lives Where: Home Travel Risk Coronavirus risk:travel/contact w/high risk person: No Has patient experienced Coronavirus symptoms: No Infectious screening In the last 2 months have you had wt loss of >10#?: NO Have you had fever, night sweats or hemotysis?: No Have you traveled outside the country in the last 6 months?: No Isolation: Standard ROS Review of Systems Constitutional: No Symptoms Reported Eyes: No Symptoms Reported ENTM: No Symptoms Reported Respiratoy: No Symptoms Reported Cardiovascular: No Symptoms Reported Gastrointestinal/Abdominal: No Symptoms Reported Genitourinary: No Symptoms Reported Neurological: Dizziness Musculoskeletal: No Symptoms Reported Integumentary: No Symptoms Reported Hematologic/Lymphatic: No Symptoms Reported Endocrine: No Symptoms Reported Psychiatric: No Symptoms Reported All Other Systems: Reviewed and Negative PE Vital Signs Vitals: Temperature 97.7 F Pulse Rate 92 Respiratory Rate 20 Blood Pressure [Right Arm] 135/61 Blood Pressure 110/57 O2 Sat by Pulse Oximetry 98 General Limitations: No Limitations General Appearance: Alert and In No Apparent Distress Head Head Exam: Normal Inspection, Atraumatic and Normocephalic Eyes Eye exam: Normal Appearance and EOMI ENT ENT Exam: Normal Exam, Normal Oropharynx and Normal External Ear Exam Neck Neck Exam: Normal Inspection, Full ROM and Trachea Midline Chest Chest Inspection: Normal Inspection and Symmetric Chest Wall Rise Respiratory Respiratory Exam: Normal Lung Sounds Bilat Cardiovascular Cardiovascular Exam: Regular Rate, Normal Rhythm, Normal Heart Sounds, +S1 and +S2 Abdominal Exam Abdominal Exam: Normal Inspection, Normal Bowel Sounds and Soft Extremities Extremities Exam: Normal Inspection and Full ROM Back Back Exam: Normal Inspection and Full ROM Neurological Neurological Exam: Alert, Oriented X3 and CN II-XII Intact Psychiatric Psychiatric Exam: Normal Affect and Normal Mood Skin Skin Exam: Dry, Intact and Normal Color COURSE Treatment Treatment: She was noted to be Orthostatic. She was given IVF as a bolus. I reviewed her meds with her and her daughter. Recommendation if for admission to OBS status with rehydration. She feels better with IVF so far. I discussed her presentation and findings with hydrate control tender provider (Dr. Randle) and he agrees with OBS request and therapy outlined. Reevaluation 1st: Improved Education/Counseling Education/Counseling: Patient, Family, Education and Counseling Educated On: Treatment, Diagnosis, Prognosis and Needs for Follow Up ROR Labs Reviewed Result Diagrams: 06/04/22 16:58 06/04/22 16:58 Laboratory: WBC 10.0 X10^3/uL (3.6-10.0) 06/04/22 16:58 RBC 3.84 X10^6/uL (3.5-5.4) 06/04/22 16:58 Hgb 11.3 g/dL (12.0-16.0) L 06/04/22 16:58 Hct 35.2 % (36.0-47.0) L 06/04/22 16:58 MCV 91.8 fL (80.0-100.0) 06/04/22 16:58 MCH 29.4 pg (27.0-34.0) 06/04/22 16:58 MCHC 32.1 g/dL (33.0-35.0) L 06/04/22 16:58 RDW 15.5 % (11.6-16.5) 06/04/22 16:58 Plt Count 355 X10^3/uL (150.0-450.0) 06/04/22 16:58 MPV 8.6 fL (7.4-11.0) 06/04/22 16:58 Neut % (Auto) 76.2 % (42.0-75.0) H 06/04/22 16:58 Lymph % (Auto) 16.3 % (21.0-51.0) L 06/04/22 16:58 [place] % (Auto) 7.1 % (0.0-13.0) 06/04/22 16:58 Eos % (Auto) 0.1 % (0.9-2.9) L 06/04/22 16:58 Baso % (Auto) 0.3 % (0.2-1.0) 06/04/22 16:58 Neut # (Auto) 7.6 x10^3/uL (2.2-4.8) H 06/04/22 16:58 Lymph # (Auto) 1.6 X10^3/uL (1.3-2.9) 06/04/22 16:58 [place] # (Auto) 0.7 x10^3/uL (0.3-0.8) 06/04/22 16:58 Eos # (Auto) 0.0 x10^3/uL (0.0-0.2) 06/04/22 16:58 Baso # (Auto) 0.0 X10^3/uL (0.0-0.1) 06/04/22 16:58 Absolute Nucleated RBC 0.0 /100WBC 06/04/22 16:58 Sodium 131 mmol/L (136-145) L 06/04/22 16:58 Corrected Sodium 133 mmol/L (136-145) L 06/04/22 16:58 Potassium 4.6 mmol/L (3.5-5.1) 06/04/22 16:58 Chloride 94 mmol/L (98-107) L 06/04/22 16:58 Carbon Dioxide 16.1 mmol/L (21-32) L 06/04/22 16:58 BUN 30 mg/dL (7-18) H 06/04/22 16:58 Creatinine 1.35 mg/dL (0.55-1.02) H 06/04/22 16:58 Est GFR (MDRD) Af Amer 49 (>60) L 06/04/22 16:58 Est GFR (MDRD) Non-Af 41 (>60) L 06/04/22 16:58 Glucose 203 mg/dL (65-99) H 06/04/22 16:58 Calcium 8.8 mg/dL (8.5-10.1) 06/04/22 16:58 Corrected Calcium 9.5 mg/dL (8.5-10.1) 06/04/22 16:58 Total Bilirubin 0.90 mg/dL (0.2-1.0) 06/04/22 16:58 AST 28 Units/L (15-37) 06/04/22 16:58 ALT 31 Units/L (12-78) 06/04/22 16:58 Alkaline Phosphatase 95 Units/L (46-116) 06/04/22 16:58 Total Protein 6.7 g/dL (6.4-8.2) 06/04/22 16:58 Albumin 3.1 g/dL (3.4-5.0) L 06/04/22 16:58 Globulin 3.6 g/dL (2.5-4.5) 06/04/22 16:58 Albumin/Globulin Ratio 0.9 Ratio (1.1-2.1) L 06/04/22 16:58 TSH 3rd Generation 2.635 uIU/mL (0.358-3.74) 06/04/22 16:58 Opioid Opioid Risk Tool Age (Tyree box if 16-45): No History of Preadolescent Sexual Abuse: No Total: 0 Total Score Risk Category: Low Risk Copyright: [facility] predicting aberrant behaviors Discharge Plan Diagnosis Discharge Problem: Orthostatic hypotension Diabetes mellitus type 2, uncontrolled Qualifiers: Glycemic state: with hyperglycemia Qualified Code(s): E11.65 - Type 2 diabetes mellitus with hyperglycemia Chronic kidney disease (CKD) Qualifiers: Chronic kidney disease stage: stage 3 (moderate) Chronic kidney disease stage 3 subtype: stage 3b (GFR 30-44) Qualified Code(s): N18.32 - Chronic kidney disease, stage 3b Discharge Plan Patient Disposition: ADMITTED INPATIENT Condition: Stable Prescriptions: No Action atorvastatin 40 mg Tablet 40 mg PO QHS oxybutynin chloride 15 mg Tablet Extended Release 24hr 15 mg PO DAILY fenofibrate micronized 134 mg Capsule 134 mg PO DAILY levothyroxine 50 mcg Tablet 50 mcg PO DAILY pantoprazole 40 mg Tablet,Delayed Release (Dr/Ec) 40 mg PO QAM folic acid 1 mg Tablet 1 mg PO DAILY lisinopril 5 mg Tablet 5 mg PO QHS Farxiga 10 mg tablet 1 tab PO QDAY Novolin R Regular U-100 Insuln 100 unit/mL Solution 0 units SUBCUT ACHS PRN0RF metformin 500 mg Tablet Extended Release 24 Hr 1,000 mg PO DAILY 0RF Januvia 100 mg Tablet 100 mg PO DAILY 0RF ropinirole 0.5 mg Tablet 0.5 mg PO BID Qty: 60 3RF Rx Instructions: TAKE ONE TABLET TWICE A DAY Health Concerns: Post Hospitalization: new medications and changes needed to prevent readmission or further decline. Pt educated and given instructions on all concerns. Plan of Treatment: Continue with present treatment and follow up plan. Pt is to keep follow up appointment as instructed and take medications as ordered. Orders to Discharge Patient Discharge Orders: Transfer (Routine); Ordered 06/04/22 Ordered By: EUGENE LARRY Follow ups/Referrals Follow ups/Referrals: Shaq Mckenna [Primary Care Provider] - 3 days
[2022-06-04] MEDS ORDERED: NS 1,000 ML IV 1,000 ML IV ONE ×2 (16:38→19:10)
[2022-06-04] MEDS ORDERED: NS 1,000 ML IV 1,000 ML ONE ×2 (16:48→19:11)
[2022-06-04 17:09] LABS: BASOPHILS % (AUTO) 0.3 % (0.2-1.0); EOSINOPHILS % (AUTO) 0.1 % (0.9-2.9); HEMATOCRIT 35.2 % (36.0-47.0); HEMOGLOBIN 11.3 g/dL (12.0-16.0); LYMPHOCYTES # (AUTO) 1.6 X10^3/uL (1.3-2.9); LYMPHOCYTES % (AUTO) 16.3 % (21.0-51.0); MEAN CORPUSCULAR HEMOGLOBIN 29.4 pg (27.0-34.0); MEAN CORPUSCULAR HGB CONC 32.1 g/dL (33.0-35.0); MEAN CORPUSCULAR VOLUME 91.8 fL (80.0-100.0); MEAN PLATELET VOLUME 8.6 fL (7.4-11.0); MONOCYTES # (AUTO) 0.7 x10^3/uL (0.3-0.8); MONOCYTES % (AUTO) 7.1 % (0.0-13.0); NEUTROPHILS # (AUTO) 7.6 x10^3/uL (2.2-4.8); NEUTROPHILS % (AUTO) 76.2 % (42.0-75.0); RED BLOOD COUNT 3.84 X10^6/uL (3.5-5.4); RED CELL DISTRIBUTION WIDTH 15.5 % (11.6-16.5)
[2022-06-04 17:25] LABS: ALBUMIN 3.1 g/dL (3.4-5.0); CALCIUM 8.8 mg/dL (8.5-10.1); CARBON DIOXIDE 16.1 mmol/L (21-32); COR CA(FOR HYPOALB) 9.5 mg/dL (8.5-10.1); CREATININE 1.35 mg/dL (0.55-1.02); TOTAL PROTEIN 6.7 g/dL (6.4-8.2); TSH (3RD GENERATION) 2.635 uIU/mL (0.358-3.74)
--- NOTE | 2022-06-04 17:56 | CT ---
EXAM: HEAD CT WITHOUT INTRAVENOUS CONTRASTHISTORY: Dizziness. Traumatic fall head injury.TECHNIQUE: Spiral axial CT images are obtained through the brain without the administration of intravenous contrast. Sagittal and coronal reformatted images are reconstructed.DOSIMETRY: Total DLP 864.84 mGycm; CTDI 48 mGyCOMPARISON: Head CT dated May 11, 2022.FINDINGS:There is a chronic stable right basal ganglia lacunar infarction. The centrum semiovale, basal ganglia, cerebellum, and brainstem are otherwise grossly unremarkable for a noncontrast CT scan.There is no acute intracranial hemorrhage, discernible acute infarction, mass lesion, midline shift, or hydrocephalus seen. No extra-axial mass or abnormal fluid collection is seen.The calvarium is intact. The partially imaged paranasal sinuses, middle ear cavities, and mastoid air cells are clear.IMPRESSION:1. No skull fracture, intracranial hemorrhage, discernible acute infarction, mass lesions, midline shift, mass effect or hydrocephalus seen.2. Chronic stable right basal ganglia lacunar infarction.3. Consider followup evaluation with MRI /MRA imaging for further assessment as clinically warranted.4. No significant interval change seen.Electronically signed by: Jackie Guaman (Jun 04, 2022 17:55:10)
[2022-06-04] MEDS: NS 1,000 ML IV 1,000 ML IV SCH (20:57)
[2022-06-04] MEDS: REQUIP PO SCH (20:58)
[2022-06-04] MEDS: LIPITOR TAB 40 MG PO SCH ×2 (21:41→22:50)
[2022-06-04 22:44] LABS: BILIRUBIN,URINE NEGATIVE (NEGATIVE); BLOOD/HEMOGLOBIN,URINE NEGATIVE (NEGATIVE); GLUCOSE, URINE 4+ (NEGATIVE); KETONES,URINE 3+ (NEGATIVE); LEUKOCYTE ESTERASE ,URINE NEGATIVE (NEGATIVE); NITRITES,URINE NEGATIVE (NEGATIVE); PROTEIN,URINE NEGATIVE (NEGATIVE); UROBILINOGEN,URINE NORMAL (NORMAL)
[2022-06-04 22:46] LABS: APPEARANCE,URINE CLEAR (CLEAR); COLOR,URINE YELLOW (YELLOW)
--- NOTE | 2022-06-04 23:31 | RAD ---
PROCEDURE: Chest X-ray 1 View .HISTORY: Fall and dehydration.TECHNIQUE: AP view .COMPARISON: 05/09/2022.TECHNICAL QUALITY: Satisfactory .FINDINGS:Normal size heart .Mediastinum and hilar regions show no masses or lymphadenopathy .Normal central vascularity .No pulmonary consolidation, masses, pleural fluid, or pneumothorax .No acute bony abnormality .IMPRESSION:No active cardiopulmonary disease .Electronically signed by: Tyson Gaitan (Jun 04, 2022 23:29:15)
[2022-06-05 05:29] LABS: BASOPHILS % (AUTO) 0.6 % (0.2-1.0); EOSINOPHILS % (AUTO) 0.5 % (0.9-2.9); HEMATOCRIT 29.7 % (36.0-47.0); LYMPHOCYTES # (AUTO) 1.4 X10^3/uL (1.3-2.9); MEAN CORPUSCULAR HEMOGLOBIN 30.6 pg (27.0-34.0); MEAN CORPUSCULAR HGB CONC 33.7 g/dL (33.0-35.0); MEAN CORPUSCULAR VOLUME 90.8 fL (80.0-100.0); MEAN PLATELET VOLUME 8.9 fL (7.4-11.0); MONOCYTES # (AUTO) 0.5 x10^3/uL (0.3-0.8); NEUTROPHILS # (AUTO) 4.2 x10^3/uL (2.2-4.8); NEUTROPHILS % (AUTO) 68.9 % (42.0-75.0); RED BLOOD COUNT 3.27 X10^6/uL (3.5-5.4); RED CELL DISTRIBUTION WIDTH 16.3 % (11.6-16.5); WHITE BLOOD COUNT 6.2 X10^3/uL (3.6-10.0)
[2022-06-05] MEDS: NS 1,000 ML IV 1,000 ML IV SCH ×3 (05:30→20:13)
[2022-06-05 05:44] LABS: ALANINE AMINOTRANSFERASE 25 Units/L (12-78); ALBUMIN 2.6 g/dL (3.4-5.0); ALKALINE PHOSPHATASE 84 Units/L (46-116); ASPARTATE AMINO TRANSFERASE 22 Units/L (15-37); BLOOD UREA NITROGEN 22 mg/dL (7-18); CALCIUM 8.3 mg/dL (8.5-10.1); CARBON DIOXIDE 21.6 mmol/L (21-32); CHLORIDE 102 mmol/L (98-107); COR CA(FOR HYPOALB) 9.4 mg/dL (8.5-10.1); COR NA(FOR HYPERGLY) 137 mmol/L (136-145); CREATININE 0.98 mg/dL (0.55-1.02); SODIUM 136 mmol/L (136-145); TOTAL PROTEIN 5.8 g/dL (6.4-8.2); eGFR NON BLACK RACES 59 (>60)
[2022-06-05] MEDS ORDERED: OXYBUTYNIN CHLORIDE 15 MG PO SCH (09:00)
[2022-06-05] MEDS: OXYBUTYNIN CHLORIDE ER PO SCH (09:00)
[2022-06-05] MEDS: SYNTHROID 50 mcg TAB PO SCH (09:01)
[2022-06-05] MEDS: TRICOR TAB 145 MG PO SCH (09:01)
[2022-06-05] MEDS: PROTONIX TAB 40 MG PO SCH (09:02)
[2022-06-05] MEDS: REQUIP PO SCH ×2 (09:02→20:13)
[2022-06-05] MEDS: GLUCOPHAGE XR 24-HR PO SCH (09:02)
[2022-06-05] MEDS: FOLIC ACID TAB 1 MG PO SCH (09:03)
--- NOTE | 2022-06-05 09:47 | EKG ---
Test Reason : DIZZINESS, WEAKNESS Blood Pressure : */* mmHG Vent. Rate : 100 BPM Atrial Rate : 100 BPM P-R Int : 190 ms QRS Dur : 78 ms QT Int : 334 ms P-R-T Axes : 73 42 31 degrees QTc Int : 430 ms Normal sinus rhythm Normal ECG When compared with ECG of 09-MAY-2022 15:03, No significant change was found Confirmed by Theodore Rios ([id number]) on 06/06/2022 10:29:16 AM Referred By: Confirmed By: Theodore Rios
[2022-06-05] MEDS ORDERED: ATIVAN INJ 2 MG VIAL IVP ONE (11:00)
[2022-06-05] MEDS: LOVENOX INJ 40 MG SYR SC SCH (13:00)
--- NOTE | 2022-06-05 15:13 | EKG ---
Test Reason : DIZZINESS, WEAKNESS Blood Pressure : */* mmHG Vent. Rate : 99 BPM Atrial Rate : 99 BPM P-R Int : 160 ms QRS Dur : 84 ms QT Int : 346 ms P-R-T Axes : 35 25 19 degrees QTc Int : 444 ms Sinus rhythm with premature atrial complexes Otherwise normal ECG When compared with ECG of 05-JUN-2022 09:42, (Unconfirmed) premature atrial complexes are now present Confirmed by Theodore Rios ([id number]) on 06/06/2022 10:28:13 AM Referred By: Confirmed By: Theodore Rios
--- NOTE | 2022-06-05 15:21 | MRI ---
HISTORYDizziness/weaknessSTUDYBRAIN W/O CONCOMPARISONCT head without contrast from June 04, 2022TECHNIQUENon-contrast MRI images of the brain were obtained utilizing a routine protocol.FINDINGSOld lacunar infarcts in the right thalamus.Periventricular chronic microvascular disease.Age related global atrophy.No abnormal signal in the dural sinuses on the sagittal T1 sequence.Pituitary gland and stalk appear normal.No mass effect on the optic chiasm.No Chiari 1 malformation.Imaged portion of the spine and spinal cord appear grossly normal.No restricted diffusion.Flow voids appear normal on the T2 sequence.No intracranial, extra-axial, fluid collection.No mass, mass effect or midline shift.No abnormal areas of acute T2 signal in the brain parenchyma.No blooming artifact in the brain parenchyma.Sinuses are well aeratedMastoid air cells are well aerated.Globes and intra-orbital contents appear normal.IMPRESSION1. No acute intracranial abnormality identified.2. Periventricular microvascular disease and age related global atrophy.Electronically signed by: Alexx White (Jun 05, 2022 15:20:23)
--- NOTE | 2022-06-05 19:25 | DR.H&P ---
H&P - History & Physical for Day of: H&P Date: 06/04/22 - Chief Complaint Chief Complaint: DIZZINESS, WEAKNESS, FALLS - History of Present Illness History of Present Illness: IS A 77 YEAR OLD PATIENT OF OURS. SHE PRESENTED TO THE ER WITH COMPLAINTS OF FREQUENT FALLS, DIZZINESS, AND GENERALIZED WEAKNESS. PATIENT DENIES HEADACHE, FEVER, CHILLS, URI SYMPTOMS, NAUSEA, VOMITING, DIARRHEA, OR TINNITUS. PATIENT REPORTS THAT HER SYMPTOMS S TARTED 5 DAYS AGO. SHE [facility]. SHE WAS IN THE [facility] FOR PHYSICAL THERAPY AND REHABILITATION FOLLOWING A HUMERUS FX AND FREQUENT FALLS. PATIENT REPORTS THAT SHE WAS NOT HAVING FALLS WHILE IN THE [facility]. APPARENTLY, PER FAMILY MEMBER, PATIENT WAS INSTRUCTED NOT TO TAKE HER LISINOPRIL AFTER SHE WAS DISCHARGED FROM THE [facility]. PATIENT REPORTS THAT SHE WAS NOT AWARE THAT IT WAS DISCONTINUED AND HAD BEEN TAKING IT. HER PMH INCLUDES ANXIETY, ARTHRITIS, DM II, DYSLIPIDEMIA, GERD, HTN, HYPOTHYROIDISM, CHOLECYSTECTOMY, HYSTERECTOMY, AND RECENT LEFT HUMERUS FRACTURE. ON ARRIVAL TO THE ER, VITALS WERE: 97.7-100-20-94%-108/53. ORTHOSTATIC BLOOD PRESSURES WERE OBTAINED WHILE IN THE ER AND WERE FOLLOWS: LYING DOWN: 108/56, SITTING 78/43, STANDING 75/40. LABS WERE OBTAINED. WBC 10.0, RBC 3.84, HGB 11.3, HCT 35.2, PLT COUNT 355, SODIUM 131, POTASSIUM 4.6, CHLORIDE 94, CARBON DIOXIDE 16.1, BUN 30, CREATININE 1.35, GLUCOSE 203, CALCIUM 8.8, TOTAL BILI 0.90, AST 28, ALT 31, ALK PHOS 95, TOTAL PROTEIN 6.7, ALBUMIN 3.1, GLOBULIN 3.6, TSH 2.635. URINALYSIS OBTAINED AND REVEALED: GLUCOSE 4+, KETONES 3+, OTHERWISE NORMAL. A CHEST XRAY WAS OBTAINED AND REVEALED: No active cardiopulmonary disease. A BRAIN CT WAS OBTAINED AND REVEALED: 1. No skull fracture, intracranial hemorrhage, discernible acute infarction, mass lesions, midline shift, mass effect or hydrocephalus seen. 2. Chronic stable right basal ganglia lacunar infarction. 3. Consider follow-up evaluation with MRI /MRA imaging for further assessment as clinically warranted. 4. No significant interval change seen. IN THE ER, SHE WAS GIVEN A NORMAL SALINE BOLUS X 2 LITERS. SHE WAS ADMITTED TO THE HOSPITAL FOR FURTHER EVALUATION AND TREATMENT OF DEHYDRATION, ORTHOSTATIC HYPOTENSION, UNCONTROLLED DM II. SHE WAS STARTED ON NORMAL SALINE AT 80 ML/HR, HUMULIN R SLIDING SCALE, OTBS ACHS, LOVENOX 40MG SC DAILY. HER HOME MEDICATIONS OF LIPITOR, TRICOR, FOLIC ACID, SYNTHROID, GLU COPHAGE, OXYBUTYNIN, PROTONIX, FARXIGA, AND REQUIP WERE RESUMED. WE PLAN TO OBTAIN SERIAL CARDIAC ENZYMES AND EKGS. WE WILL ALSO OBTAIN A BRAIN MRI WITHOUT CONTRAST TO RULE OUT CVA. OTHERWISE, WE WILL FOLLOW-UP WITH AM LABS AND CONTINUE TO MONITOR. TIME SPENT ON CLINICAL ASSESSMENT, REVIWING LABS AND IMAGING, DECISION MAKING, AND DOCUMENTATION GREATER THAN 75 MINUTES. - Past Medical History Past Medical History: Hypertension, Dyslipidemia, Diabetes, Dementia, Anxiety, Hypothyroidism, GERD, Arthritis - Past Surgical History Surgical History: Cholecystectomy - Family History Family Medical History: Cancer, Sudden Cardiac - Social History Does patient currently use any type of tobacco product: No Have you used tobacco products in the last 12 months: No Type of Tobacco Use: None Does any household member use tobacco: No Alcohol Use: None Drug Use: None - Medications Home Medications: No Known Drug Allergies Allergy (Verified 01/26/20 17:57) - Review of Systems Constitutional: Weakness. denies: Fever, Chills Eyes: No Symptoms Reported. denies: Vision Change ENT: No Symptoms Reported. denies: Ear Pain, Nose Discharge, Throat Pain Respiratory: No Symptoms Reported, SOB with Excertion. denies: Cough, Shortness of Breath Cardiovascular: Light Headedness. denies: Chest Pain Gastrointestinal: No Symptoms Reported, Constipation. denies: Nausea, Abdominal Pain, Diarrhea Genitourinary: No Symptoms Reported Musculoskeletal: No Symptoms Reported Skin: No Symptoms Reported Neurological: Weakness. denies: Change in Speech, Confusion, Seizures - Physical Exam Vital Signs: Temperature 99.8 F Pulse Rate [Right] 110 Pulse Rate 95 Respiratory Rate 20 Blood Pressure [Right Arm] 130/62 Blood Pressure 110/57 O2 Sat by Pulse Oximetry 98 Oriented: Normal Eyes: Normal Ear: Normal Nose: Normal Throat: Normal Respiratory: Diminished Throughout Cardiovascular: Normal : Normal Auscultation: Bowel Sounds: Normal Palpation: Normal Tenderness: Normal Skin: Normal Musculoskeletal: Normal Psychiatric: Normal Mood Description: Calm Affect: Normal Speech Pattern: Clear - Assessment/Plan (1) Dehydration Status: Acute Plan: ADMIT, SERIAL CARDIAC ENZYMES AND EKGS, OBTAIN BRAIN MRI WITHOUT CONTRAST, NORMAL SALINE AT 80 ML/HR, HUMULIN R SLIDING SCALE, OTBS ACHS, LOVENOX 40MG SC DAILY. RESUME HOME MEDS (2) Orthostatic hypotension Status: Acute (3) Frequent falls Status: Acute (4) Generalized weakness Status: Acute - Allergies Allergies/Adverse Reactions: Allergies Allergy/AdvReac Type Severity Reaction Status Date / Time No Known Drug Allergies Allergy Verified 01/26/20 17:57
[2022-06-05] MEDS: LIPITOR TAB 40 MG PO SCH (20:13)
--- NOTE | 2022-06-05 20:42 | EKG ---
Test Reason : DIZZINESS, WEAKNESS Blood Pressure : */* mmHG Vent. Rate : 87 BPM Atrial Rate : 87 BPM P-R Int : 170 ms QRS Dur : 84 ms QT Int : 354 ms P-R-T Axes : 71 70 44 degrees QTc Int : 425 ms Normal sinus rhythm with sinus arrhythmia Low voltage QRS Septal infarct , age undetermined Abnormal ECG When compared with ECG of 05-JUN-2022 15:08, (Unconfirmed) premature atrial complexes are no longer present Confirmed by Theodore Rios ([id number]) on 06/06/2022 10:27:06 AM Referred By: Confirmed By: Theodore Rios
[2022-06-06] MEDS: NS 1,000 ML IV 1,000 ML IV SCH ×3 (00:25→12:00)
[2022-06-06 05:16] LABS: BASOPHILS % (AUTO) 0.7 % (0.2-1.0); EOSINOPHILS # (AUTO) 0.1 x10^3/uL (0.0-0.2); EOSINOPHILS % (AUTO) 1.5 % (0.9-2.9); HEMATOCRIT 28.7 % (36.0-47.0); HEMOGLOBIN 9.5 g/dL (12.0-16.0); LYMPHOCYTES # (AUTO) 1.3 X10^3/uL (1.3-2.9); LYMPHOCYTES % (AUTO) 29.6 % (21.0-51.0); MEAN CORPUSCULAR HEMOGLOBIN 29.9 pg (27.0-34.0); MEAN CORPUSCULAR HGB CONC 33.1 g/dL (33.0-35.0); MEAN CORPUSCULAR VOLUME 90.3 fL (80.0-100.0); MEAN PLATELET VOLUME 8.2 fL (7.4-11.0); MONOCYTES # (AUTO) 0.3 x10^3/uL (0.3-0.8); MONOCYTES % (AUTO) 7.5 % (0.0-13.0); NEUTROPHILS # (AUTO) 2.7 x10^3/uL (2.2-4.8); NEUTROPHILS % (AUTO) 60.7 % (42.0-75.0); RED BLOOD COUNT 3.17 X10^6/uL (3.5-5.4); RED CELL DISTRIBUTION WIDTH 15.8 % (11.6-16.5); WHITE BLOOD COUNT 4.5 X10^3/uL (3.6-10.0)
[2022-06-06 05:31] LABS: ALANINE AMINOTRANSFERASE 25 Units/L (12-78); ALBUMIN 2.4 g/dL (3.4-5.0); ALKALINE PHOSPHATASE 88 Units/L (46-116); ASPARTATE AMINO TRANSFERASE 24 Units/L (15-37); BLOOD UREA NITROGEN 13 mg/dL (7-18); CALCIUM 8.3 mg/dL (8.5-10.1); CARBON DIOXIDE 24.9 mmol/L (21-32); CHLORIDE 106 mmol/L (98-107); COR CA(FOR HYPOALB) 9.6 mg/dL (8.5-10.1); COR NA(FOR HYPERGLY) 140 mmol/L (136-145); CREATININE 0.77 mg/dL (0.55-1.02); SODIUM 139 mmol/L (136-145); TOTAL PROTEIN 5.6 g/dL (6.4-8.2); eGFR NON BLACK RACES > 60 (>60)
[2022-06-06] MEDS: OXYBUTYNIN CHLORIDE ER PO SCH (09:03)
[2022-06-06] MEDS: TRICOR TAB 145 MG PO SCH (09:04)
[2022-06-06] MEDS: FOLIC ACID TAB 1 MG PO SCH (09:04)
[2022-06-06] MEDS: PROTONIX TAB 40 MG PO SCH (09:05)
[2022-06-06] MEDS: SYNTHROID 50 mcg TAB PO SCH (09:05)
[2022-06-06] MEDS: LOVENOX INJ 40 MG SYR SC SCH (09:05)
[2022-06-06] MEDS: REQUIP PO SCH ×2 (09:10→20:33)
[2022-06-06] MEDS: GLUCOPHAGE XR 24-HR PO SCH (09:11)
--- NOTE | 2022-06-06 15:18 | PCM.PROG ---
Progress Note - Progress Note for Day of Date of Exam: 06/06/22 - Subjective Subjective: IS CURRENTLY OBSERVATION STATUS FOR TREATMENT OF DEHYDRATION, ORTHOSTATIC HYPOTENSION, FREQUENT FALLS, AND GENERALIZED WEAKNESS. SHE HAS A PMH OF ANXIETY, ARTHRITIS, DM II, DYSLIPIDEMIA, GERD, HTN, HYPOTHYROIDISM, CHOLECYSTECTOMY, HYSTERECTOMY, AND RECENT LEFT HUMERUS FRACTURE. TODAY, SHE IS ALERT AND ORIENTED, LYING IN BED ON MORNING ROUNDS. SHE DENIES DIZZINESS THIS MORNING. SHE CONTINUES WITH GENERALIZED WEAKNESS AND UNSTEADY GAIT. ON EXAMINATION TODAY, HEART IS REGULAR IN RATE AND RHYTHM. BILATERAL LUNGS ARE NOTED WITH DIMINISHED LUNG SOUNDS THROUGHOUT. ABDOMEN IS ROUND, SOFT, AND NON-TENDER WITH NORMAL BOWEL SOUNDS IN ALL QUADRANTS. NO UPPER OR LOWER EXTREMITY EDEMA NOTED. HER VITALS THIS MORNING ARE: 98.9-100-20-98%-134/58. LABS WERE OBTAINED. WBC 4.5, RBC 3.17, HGB 9.5, HCT 28.7, PLT COUNT 224, SODIUM 139, POTASSIUM 3.7, CHLORIDE 106, BUN 13, CREATININE 0.77, GLUCOSE 123, CALCIUM 8.3, AST 24, ALT 25, ALK PHOS 88, TOTAL PROTEIN 5.6, ALBUMIN 2.4. CARDIAC ENZYMES AND EKGS WERE WITHIN NORMAL LIMITS. A BRAIN MRI WAS OBTAINED. IT REVEALED: 1. No acute intracranial abnormality identified. 2. 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 PATIENT HAS AMBULATED IN THE ROOM TODAY WITH THE ASSISTANCE OF THE PHYSICAL THERAPIST. SHE IS CURRENTLY RECEIVING NORMAL SALINE AT 80 ML/HR, HUMULIN R SLIDING SCALE, OTBS ACHS, LOVENOX 40MG SC DAILY. HER HOME MEDICATIONS OF LIPITOR, TRICOR, FOLIC ACID, SYNTHROID, GLUCOPHAGE, OXYBUTYNIN, PROTONIX, FARXIGA, AND REQUIP WERE RESUMED. WE WILL CONTINUE WITH CURRENT PLAN OF CARE TODAY. PHYSICAL THERAPY WILL CONTINUE TO WORK WITH PATIENT. OTHERWISE, WE WILL FOLLOW-UP WITH AM LABS AND CONTINUE TO MONITOR. TIME SPENT ON CLINICAL ASSESSMENT, REVIEWING LABS AND IMAGING, DECISION MAKING, AND DOCUMENTATION GREATER THAN 45 MINUTES. - Past Medical Family Social History Past Med/Fam/Surg Hx: No changes since H&P Allergies: Allergies No Known Drug Allergies Allergy (Verified 01/26/20 17:57) - Review of Systems ROS: No change since H&P - Vital Signs and I&O's Vital Signs: Temperature 99.3 F Pulse Rate [Right] 95 Pulse Rate 95 Respiratory Rate 20 Blood Pressure [Right Arm] 128/61 Blood Pressure 110/57 O2 Sat by Pulse Oximetry 96 Intake and Output: Intake & Output 06/04/22 06/05/22 06/06/22 06/07/22 11:59 11:59 11:59 11:59 Intake Total 1241 / 1241 2742 / 2742 Balance 1241 / 1241 2742 / 2742 - Physical Exam Oriented: Normal Eyes: Normal Ear: Normal Nose: Normal Throat: Normal Respiratory: Generalized, Diminished Cardiovascular: Normal : Normal Auscultation: Bowel Sounds: Normal Palpation: Normal Tenderness: Normal Skin: Normal Musculoskeletal: Normal Psychiatric: Normal Mood Description: Calm Affect: Normal Speech Pattern: Clear, Appropriate - Laboratory and Diagnostics Result Diagrams: 06/06/22 05:03 06/06/22 05:03 Labs: Laboratory WBC 4.5 X10^3/uL (3.6-10.0) 06/06/22 05:03 RBC 3.17 X10^6/uL (3.5-5.4) L 06/06/22 05:03 Hgb 9.5 g/dL (12.0-16.0) L 06/06/22 05:03 Hct 28.7 % (36.0-47.0) L 06/06/22 05:03 MCV 90.3 fL (80.0-100.0) 06/06/22 05:03 MCH 29.9 pg (27.0-34.0) 06/06/22 05:03 MCHC 33.1 g/dL (33.0-35.0) 06/06/22 05:03 RDW 15.8 % (11.6-16.5) 06/06/22 05:03 Plt Count 224 X10^3/uL (150.0-450.0) 06/06/22 05:03 MPV 8.2 fL (7.4-11.0) 06/06/22 05:03 Neut % (Auto) 60.7 % (42.0-75.0) 06/06/22 05:03 Lymph % (Auto) 29.6 % (21.0-51.0) 06/06/22 05:03 [place] % (Auto) 7.5 % (0.0-13.0) 06/06/22 05:03 Eos % (Auto) 1.5 % (0.9-2.9) 06/06/22 05:03 Baso % (Auto) 0.7 % (0.2-1.0) 06/06/22 05:03 Neut # (Auto) 2.7 x10^3/uL (2.2-4.8) 06/06/22 05:03 Lymph # (Auto) 1.3 X10^3/uL (1.3-2.9) 06/06/22 05:03 [place] # (Auto) 0.3 x10^3/uL (0.3-0.8) 06/06/22 05:03 Eos # (Auto) 0.1 x10^3/uL (0.0-0.2) 06/06/22 05:03 Baso # (Auto) 0.0 X10^3/uL (0.0-0.1) 06/06/22 05:03 Absolute Nucleated RBC 0.0 /100WBC 06/06/22 05:03 Sodium 139 mmol/L (136-145) 06/06/22 05:03 Corrected Sodium 140 mmol/L (136-145) 06/06/22 05:03 Potassium 3.7 mmol/L (3.5-5.1) 06/06/22 05:03 Chloride 106 mmol/L (98-107) 06/06/22 05:03 Carbon Dioxide 24.9 mmol/L (21-32) 06/06/22 05:03 BUN 13 mg/dL (7-18) 06/06/22 05:03 Creatinine 0.77 mg/dL (0.55-1.02) 06/06/22 05:03 Est GFR (MDRD) Af Amer > 60 (>60) 06/06/22 05:03 Est GFR (MDRD) Non-Af > 60 (>60) 06/06/22 05:03 Glucose 123 mg/dL (65-99) H 06/06/22 05:03 POC Glucose (mg/dL) 200 mg/dL (65-99) H 06/06/22 11:26 Calcium 8.3 mg/dL (8.5-10.1) L 06/06/22 05:03 Corrected Calcium 9.6 mg/dL (8.5-10.1) 06/06/22 05:03 Total Bilirubin 0.50 mg/dL (0.2-1.0) 06/06/22 05:03 AST 24 Units/L (15-37) 06/06/22 05:03 ALT 25 Units/L (12-78) 06/06/22 05:03 Alkaline Phosphatase 88 Units/L (46-116) 06/06/22 05:03 Creatine Kinase 87 Units/L (26-192) 06/05/22 21:45 Troponin I High Sens 26.0 ng/L (4.0-60.0) 06/05/22 21:45 Total Protein 5.6 g/dL (6.4-8.2) L 06/06/22 05:03 Albumin 2.4 g/dL (3.4-5.0) L 06/06/22 05:03 Globulin 3.2 g/dL (2.5-4.5) 06/06/22 05:03 Albumin/Globulin Ratio 0.8 Ratio (1.1-2.1) L 06/06/22 05:03 TSH 3rd Generation 2.635 uIU/mL (0.358-3.74) 06/04/22 16:58 Specimen Type Clean catch urine 06/04/22 22:21 Urine Color Yellow (YELLOW) 06/04/22 22:21 Urine Appearance Clear (CLEAR) 06/04/22 22:21 Urine pH 5.0 (5.0 - 8.0) 06/04/22 22:21 Ur Specific [place] 1.020 (1.000-1.030) 06/04/22 22:21 Urine Protein Negative (NEGATIVE) 06/04/22 22:21 Urine Glucose (UA) 4+ (NEGATIVE) 06/04/22 22:21 Urine Ketones 3+ (NEGATIVE) 06/04/22 22:21 Urine Blood Negative (NEGATIVE) 06/04/22 22:21 Urine Nitrite Negative (NEGATIVE) 06/04/22 22:21 Urine Bilirubin Negative (NEGATIVE) 06/04/22 22:21 Urine Urobilinogen Normal (NORMAL) 06/04/22 22:21 Ur Leukocyte Esterase Negative (NEGATIVE) 06/04/22 22:21 - Plan (1) Dehydration Status: Acute Plan: NORMAL SALINE AT 80 ML/HR, HUMULIN R SLIDING SCALE, OTBS ACHS, LOVENOX 40MG SC DAILY. RESUME HOME MEDS. PT/OT (2) Orthostatic hypotension Status: Acute (3) Frequent falls Status: Acute (4) Generalized weakness Status: Acute (5) Hyperlipidemia Status: Chronic Qualifiers: Hyperlipidemia type: mixed hyperlipidemia Qualified Code(s): E78.2 - Mixed hyperlipidemia (6) Hypothyroidism Status: Chronic Qualifiers: Hypothyroidism type: acquired Qualified Code(s): E03.9 - Hypothyroidism, unspecified (7) Diabetes mellitus type 2, uncontrolled Status: Chronic Qualifiers: Glycemic state: with hyperglycemia Qualified Code(s): E11.65 - Type 2 diabetes mellitus with hyperglycemia (8) Restless leg syndrome Status: Chronic
[2022-06-06] MEDS: LIPITOR TAB 40 MG PO SCH (20:34)
[2022-06-07] MEDS: NS 1,000 ML IV 1,000 ML IV SCH ×2 (05:07→13:00)
[2022-06-07 06:30] LABS: BASOPHILS % (AUTO) 0.9 % (0.2-1.0); EOSINOPHILS # (AUTO) 0.1 x10^3/uL (0.0-0.2); EOSINOPHILS % (AUTO) 2.6 % (0.9-2.9); HEMATOCRIT 27.9 % (36.0-47.0); HEMOGLOBIN 9.3 g/dL (12.0-16.0); LYMPHOCYTES % (AUTO) 28.4 % (21.0-51.0); MEAN CORPUSCULAR HEMOGLOBIN 30.2 pg (27.0-34.0); MEAN CORPUSCULAR HGB CONC 33.4 g/dL (33.0-35.0); MEAN CORPUSCULAR VOLUME 90.2 fL (80.0-100.0); MONOCYTES # (AUTO) 0.3 x10^3/uL (0.3-0.8); MONOCYTES % (AUTO) 7.6 % (0.0-13.0); NEUTROPHILS # (AUTO) 2.1 x10^3/uL (2.2-4.8); NEUTROPHILS % (AUTO) 60.5 % (42.0-75.0); WHITE BLOOD COUNT 3.5 X10^3/uL (3.6-10.0)
[2022-06-07 06:38] LABS: ALANINE AMINOTRANSFERASE 22 Units/L (12-78); ALBUMIN 2.3 g/dL (3.4-5.0); ALKALINE PHOSPHATASE 111 Units/L (46-116); ASPARTATE AMINO TRANSFERASE 24 Units/L (15-37); BLOOD UREA NITROGEN 9 mg/dL (7-18); CALCIUM 8.3 mg/dL (8.5-10.1); CARBON DIOXIDE 25.8 mmol/L (21-32); CHLORIDE 107 mmol/L (98-107); COR CA(FOR HYPOALB) 9.7 mg/dL (8.5-10.1); COR NA(FOR HYPERGLY) 142 mmol/L (136-145); CREATININE 0.75 mg/dL (0.55-1.02); SODIUM 140 mmol/L (136-145); TOTAL PROTEIN 5.4 g/dL (6.4-8.2); eGFR NON BLACK RACES > 60 (>60)
[2022-06-07] MEDS: REQUIP PO SCH ×2 (09:07→20:32)
[2022-06-07] MEDS: FOLIC ACID TAB 1 MG PO SCH (09:08)
[2022-06-07] MEDS: SYNTHROID 50 mcg TAB PO SCH (09:08)
[2022-06-07] MEDS: GLUCOPHAGE XR 24-HR PO SCH (09:08)
[2022-06-07] MEDS: TRICOR TAB 145 MG PO SCH (09:08)
[2022-06-07] MEDS: PROTONIX TAB 40 MG PO SCH (09:09)
[2022-06-07] MEDS: OXYBUTYNIN CHLORIDE ER PO SCH (09:09)
[2022-06-07] MEDS: LOVENOX INJ 40 MG SYR SC SCH (09:10)
--- NOTE | 2022-06-07 11:30 | PCM.PROG ---
Progress Note - Progress Note for Day of Date of Exam: 06/07/22 - Subjective Subjective: IS CURRENTLY OBSERVATION STATUS FOR TREATMENT OF DEHYDRATION, ORTHOSTATIC HYPOTENSION, FREQUENT FALLS, AND GENERALIZED WEAKNESS. SHE HAS A PMH OF ANXIETY, ARTHRITIS, DM II, DYSLIPIDEMIA, GERD, HTN, HYPOTHYROIDISM, CHOLECYSTECTOMY, HYSTERECTOMY, AND RECENT LEFT HUMERUS FRACTURE. TODAY, SHE IS ALERT AND ORIENTED, LYING IN BED ON MORNING ROUNDS. SHE DENIES DIZZINESS THIS MORNING. SHE CONTINUES WITH GENERALIZED WEAKNESS, UNSTEADY GAIT AT TIMES, AND SHE ALSO COMPLAINS OF INTERMITTENT LEFT ARM PAIN. ON EXAMINATION TODAY, HEART IS REGULAR IN RATE AND RHYTHM. BILATERAL LUNGS ARE NOTED WITH DIMINISHED LUNG SOUNDS THROUGHOUT. ABDOMEN IS ROUND, SOFT, AND NON-TENDER WITH NORMAL BOWEL SOUNDS IN ALL QUADRANTS. NO UPPER OR LOWER EXTREMITY EDEMA NOTED. HER VITALS THIS MORNING ARE: 99.2-100-20-98%-134/63. LABS WERE OBTAINED. WBC 3.5, RBC 3.10, HGB 9.3, HCT 27.9, PLT COUNT 220, SODIUM 140, POTASSIUM 3.6, CHLORIDE 107, BUN 9, CREATININE 0.75, GLUCOSE 192, CALCIUM 8.3, AST 24, ALT 22, ALK PHOS 111, TOTAL PROTEIN 5.4, ALBUMIN 2.3. CARDIAC ENZYMES AND EKGS WERE WITHIN NORMAL LIMITS. A BRAIN MRI WAS OBTAINED ON 06/05/21. IT REVEALED: 1. No acute intracranial abnormality identified. 2. 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 PATIENT HAS AMBULATED IN THE ROOM TODAY WITH THE ASSISTANCE OF THE PHYSICAL THERAPIST. SHE IS COOPERATING WELL. SHE IS CURRENTLY RECEIVING NORMAL SALINE AT 80 ML/HR, HUMULIN R SLIDING SCALE, OTBS ACHS, LOVENOX 40MG SC DAILY. HER HOME MEDICATIONS OF LIPITOR, TRICOR, FOLIC ACID, SYNTHROID, GLUCOPHAGE, OXYBUTYNIN, PROTONIX, FARXIGA, AND REQUIP WERE RESUMED. WE WILL CONTINUE WITH CURRENT PLAN OF CARE TODAY. PHYSICAL THERAPY WILL CONTINUE TO WORK WITH PATIENT. OTHERWISE, WE WILL FOLLOW-UP WITH AM LABS AND CONTINUE TO MONITOR. TIME SPENT ON CLINICAL ASSESSMENT, REVIEWING LABS AND IMAGING, DECISION MAKING, AND DOCUMENTATION GREATER THAN 45 MINUTES. - Past Medical Family Social History Past Med/Fam/Surg Hx: No changes since H&P Allergies: Allergies No Known Drug Allergies Allergy (Verified 01/26/20 17:57) - Review of Systems ROS: No change since H&P - Vital Signs and I&O's Vital Signs: Temperature 99.2 F Pulse Rate [Right] 110 Pulse Rate 95 Respiratory Rate 20 Blood Pressure [Right Arm] 134/63 Blood Pressure 110/57 O2 Sat by Pulse Oximetry 98 Intake and Output: Intake & Output 06/04/22 06/05/22 06/06/22 06/07/22 11:59 11:59 11:59 11:59 Intake Total 1241 / 1241 2742 / 2742 3088 / 3088 Balance 1241 / 1241 2742 / 2742 3088 / 3088 - Physical Exam Oriented: Normal Eyes: Normal Ear: Normal Nose: Normal Throat: Normal Respiratory: Generalized, Diminished Cardiovascular: Normal : Normal Auscultation: Bowel Sounds: Normal Tenderness: Normal Skin: Normal Musculoskeletal: Normal Psychiatric: Normal Mood Description: Calm Affect: Normal Speech Pattern: Clear, Appropriate - Laboratory and Diagnostics Result Diagrams: 06/07/22 05:36 06/07/22 05:36 Labs: Laboratory WBC 3.5 X10^3/uL (3.6-10.0) L 06/07/22 05:36 RBC 3.10 X10^6/uL (3.5-5.4) L 06/07/22 05:36 Hgb 9.3 g/dL (12.0-16.0) L 06/07/22 05:36 Hct 27.9 % (36.0-47.0) L 06/07/22 05:36 MCV 90.2 fL (80.0-100.0) 06/07/22 05:36 MCH 30.2 pg (27.0-34.0) 06/07/22 05:36 MCHC 33.4 g/dL (33.0-35.0) 06/07/22 05:36 RDW 16.0 % (11.6-16.5) 06/07/22 05:36 Plt Count 220 X10^3/uL (150.0-450.0) 06/07/22 05:36 MPV 9.0 fL (7.4-11.0) 06/07/22 05:36 Neut % (Auto) 60.5 % (42.0-75.0) 06/07/22 05:36 Lymph % (Auto) 28.4 % (21.0-51.0) 06/07/22 05:36 [place] % (Auto) 7.6 % (0.0-13.0) 06/07/22 05:36 Eos % (Auto) 2.6 % (0.9-2.9) 06/07/22 05:36 Baso % (Auto) 0.9 % (0.2-1.0) 06/07/22 05:36 Neut # (Auto) 2.1 x10^3/uL (2.2-4.8) L 06/07/22 05:36 Lymph # (Auto) 1.0 X10^3/uL (1.3-2.9) L 06/07/22 05:36 [place] # (Auto) 0.3 x10^3/uL (0.3-0.8) 06/07/22 05:36 Eos # (Auto) 0.1 x10^3/uL (0.0-0.2) 06/07/22 05:36 Baso # (Auto) 0.0 X10^3/uL (0.0-0.1) 06/07/22 05:36 Absolute Nucleated RBC 0.1 /100WBC 06/07/22 05:36 Sodium 140 mmol/L (136-145) 06/07/22 05:36 Corrected Sodium 142 mmol/L (136-145) 06/07/22 05:36 Potassium 3.6 mmol/L (3.5-5.1) 06/07/22 05:36 Chloride 107 mmol/L (98-107) 06/07/22 05:36 Carbon Dioxide 25.8 mmol/L (21-32) 06/07/22 05:36 BUN 9 mg/dL (7-18) 06/07/22 05:36 Creatinine 0.75 mg/dL (0.55-1.02) 06/07/22 05:36 Est GFR (MDRD) Af Amer > 60 (>60) 06/07/22 05:36 Est GFR (MDRD) Non-Af > 60 (>60) 06/07/22 05:36 Glucose 192 mg/dL (65-99) H 06/07/22 05:36 POC Glucose (mg/dL) 177 mg/dL (65-99) H 06/07/22 05:09 Calcium 8.3 mg/dL (8.5-10.1) L 06/07/22 05:36 Corrected Calcium 9.7 mg/dL (8.5-10.1) 06/07/22 05:36 Magnesium 0.7 mg/dL (2.0-2.9) L 06/07/22 05:36 Total Bilirubin 0.50 mg/dL (0.2-1.0) 06/07/22 05:36 AST 24 Units/L (15-37) 06/07/22 05:36 ALT 22 Units/L (12-78) 06/07/22 05:36 Alkaline Phosphatase 111 Units/L (46-116) 06/07/22 05:36 Creatine Kinase 87 Units/L (26-192) 06/05/22 21:45 Troponin I High Sens 26.0 ng/L (4.0-60.0) 06/05/22 21:45 Total Protein 5.4 g/dL (6.4-8.2) L 06/07/22 05:36 Albumin 2.3 g/dL (3.4-5.0) L 06/07/22 05:36 Globulin 3.1 g/dL (2.5-4.5) 06/07/22 05:36 Albumin/Globulin Ratio 0.7 Ratio (1.1-2.1) L 06/07/22 05:36 TSH 3rd Generation 2.635 uIU/mL (0.358-3.74) 06/04/22 16:58 Specimen Type Clean catch urine 06/04/22 22:21 Urine Color Yellow (YELLOW) 06/04/22 22:21 Urine Appearance Clear (CLEAR) 06/04/22 22:21 Urine pH 5.0 (5.0 - 8.0) 06/04/22 22:21 Ur [address] [place] 1.020 (1.000-1.030) 06/04/22 22:21 Urine Protein Negative (NEGATIVE) 06/04/22 22:21 Urine Glucose (UA) 4+ (NEGATIVE) 06/04/22 22:21 Urine Ketones 3+ (NEGATIVE) 06/04/22 22:21 Urine Blood Negative (NEGATIVE) 06/04/22 22:21 Urine Nitrite Negative (NEGATIVE) 06/04/22 22:21 Urine Bilirubin Negative (NEGATIVE) 06/04/22 22:21 Urine Urobilinogen Normal (NORMAL) 06/04/22 22:21 Ur Leukocyte Esterase Negative (NEGATIVE) 06/04/22 22:21 - Plan (1) Dehydration Status: Acute Plan: NORMAL SALINE AT 80 ML/HR, HUMULIN R SLIDING SCALE, OTBS ACHS, LOVENOX 40MG SC DAILY. RESUME HOME MEDS. PT/OT (2) Orthostatic hypotension Status: Acute (3) Frequent falls Status: Acute (4) Generalized weakness Status: Acute (5) Hyperlipidemia Status: Chronic Qualifiers: Hyperlipidemia type: mixed hyperlipidemia Qualified Code(s): E78.2 - Mixed hyperlipidemia (6) Hypothyroidism Status: Chronic Qualifiers: Hypothyroidism type: acquired Qualified Code(s): E03.9 - Hypothyroidism, unspecified (7) Diabetes mellitus type 2, uncontrolled Status: Chronic Qualifiers: Glycemic state: with hyperglycemia Qualified Code(s): E11.65 - Type 2 diabetes mellitus with hyperglycemia (8) Restless leg syndrome Status: Chronic
[2022-06-07] MEDS: LIPITOR TAB 40 MG PO SCH (20:33)
[2022-06-08] MEDS: NS 1,000 ML IV 1,000 ML IV SCH ×3 (03:37→16:19)
[2022-06-08] MEDS: NovoLIN R (or HumuLIN R) SUBCUT PRN ×2 (05:58→11:46)
[2022-06-08 06:15] LABS: ALANINE AMINOTRANSFERASE 22 Units/L (12-78); ALBUMIN 2.3 g/dL (3.4-5.0); ALKALINE PHOSPHATASE 121 Units/L (46-116); ASPARTATE AMINO TRANSFERASE 22 Units/L (15-37); BLOOD UREA NITROGEN 8 mg/dL (7-18); CALCIUM 8.5 mg/dL (8.5-10.1); CARBON DIOXIDE 25.5 mmol/L (21-32); CHLORIDE 104 mmol/L (98-107); COR CA(FOR HYPOALB) 9.9 mg/dL (8.5-10.1); COR NA(FOR HYPERGLY) 141 mmol/L (136-145); CREATININE 0.73 mg/dL (0.55-1.02); MAGNESIUM 0.5 mg/dL (2.0-2.9); SODIUM 138 mmol/L (136-145); TOTAL PROTEIN 5.3 g/dL (6.4-8.2); eGFR NON BLACK RACES > 60 (>60)
[2022-06-08 06:18] LABS: EOSINOPHILS # (AUTO) 0.1 x10^3/uL (0.0-0.2); EOSINOPHILS % (AUTO) 3.8 % (0.9-2.9); HEMATOCRIT 27.6 % (36.0-47.0); HEMOGLOBIN 9.4 g/dL (12.0-16.0); LYMPHOCYTES # (AUTO) 1.1 X10^3/uL (1.3-2.9); LYMPHOCYTES % (AUTO) 31.5 % (21.0-51.0); MEAN CORPUSCULAR HEMOGLOBIN 30.7 pg (27.0-34.0); MEAN CORPUSCULAR HGB CONC 34.1 g/dL (33.0-35.0); MEAN CORPUSCULAR VOLUME 90.2 fL (80.0-100.0); MEAN PLATELET VOLUME 9.2 fL (7.4-11.0); MONOCYTES # (AUTO) 0.3 x10^3/uL (0.3-0.8); MONOCYTES % (AUTO) 7.6 % (0.0-13.0); NEUTROPHILS # (AUTO) 1.9 x10^3/uL (2.2-4.8); NEUTROPHILS % (AUTO) 56.1 % (42.0-75.0); RED BLOOD COUNT 3.06 X10^6/uL (3.5-5.4); RED CELL DISTRIBUTION WIDTH 15.4 % (11.6-16.5); WHITE BLOOD COUNT 3.4 X10^3/uL (3.6-10.0)
[2022-06-08] MEDS ORDERED: POTASSIUM CHLORIDE LIQ 20 MEQ UDC PO PRN (06:27)
[2022-06-08] MEDS ORDERED: K-DUR TAB 20 MEQ PO PRN (06:27)
[2022-06-08] MEDS ORDERED: KLOR-CON PO PRN (06:27)
[2022-06-08] MEDS ORDERED: MICRO K EXTEN CAP 10 MEQ PO PRN (06:27)
[2022-06-08] MEDS ORDERED: K-RIDER 10 MEQ/NS 100 ML 10 MEQ/100 ML BAG IV PRN (06:27)
[2022-06-08] MEDS ORDERED: POTASSIUM CHL 60 MEQ/NS 0.45% 500 ML IV PRN (06:27)
[2022-06-08] MEDS ORDERED: POTASSIUM CHL 40 MEQ/NS 0.45% 500 ML IV PRN (06:27)
[2022-06-08] MEDS: TRICOR TAB 145 MG PO SCH (09:06)
[2022-06-08] MEDS: REQUIP PO SCH ×2 (09:06→20:45)
[2022-06-08] MEDS: GLUCOPHAGE XR 24-HR PO SCH (09:06)
[2022-06-08] MEDS: OXYBUTYNIN CHLORIDE ER PO SCH (09:06)
[2022-06-08] MEDS: SYNTHROID 50 mcg TAB PO SCH (09:07)
[2022-06-08] MEDS: LOVENOX INJ 40 MG SYR SC SCH (09:07)
[2022-06-08] MEDS: FOLIC ACID TAB 1 MG PO SCH (09:07)
[2022-06-08] MEDS: PROTONIX TAB 40 MG PO SCH (09:07)
[2022-06-08] MEDS ORDERED: MAGNESIUM SULFATE IV ONE ×2 (10:00)
[2022-06-08] MEDS ORDERED: NS IV ONE ×2 (10:00)
--- NOTE | 2022-06-08 12:18 | PCM.PROG ---
Progress Note - Progress Note for Day of Date of Exam: 06/08/22 - Subjective Subjective: IS CURRENTLY OBSERVATION STATUS FOR TREATMENT OF DEHYDRATION, ORTHOSTATIC HYPOTENSION, FREQUENT FALLS, AND GENERALIZED WEAKNESS. SHE HAS A PMH OF ANXIETY, ARTHRITIS, DM II, DYSLIPIDEMIA, GERD, HTN, HYPOTHYROIDISM, CHOLECYSTECTOMY, HYSTERECTOMY, AND RECENT LEFT HUMERUS FRACTURE. TODAY, SHE IS ALERT AND ORIENTED, LYING IN BED ON MORNING ROUNDS. SHE DENIES DIZZINESS THIS MORNING. SHE CONTINUES WITH GENERALIZED WEAKNESS, UNSTEADY GAIT AT TIMES, AND SHE ALSO COMPLAINS OF INTERMITTENT LEFT ARM PAIN. ON EXAMINATION TODAY, HEART IS REGULAR IN RATE AND RHYTHM. BILATERAL LUNGS ARE NOTED WITH DIMINISHED LUNG SOUNDS THROUGHOUT. ABDOMEN IS ROUND, SOFT, AND NON-TENDER WITH NORMAL BOWEL SOUNDS IN ALL QUADRANTS. NO UPPER OR LOWER EXTREMITY EDEMA NOTED. HER VITALS THIS MORNING ARE: 97.9-100-20-97%-145/70. LABS WERE OBTAINED. WBC 3.4, RBC 3.06, HGB 9.4, HCT 27.6, SODIUM 138, POTASSIUM 3.6, BUN 8, CREATININE 0.73, GLUCOSE 229, CALCIUM 8.5, MAGNESIUM 0.5, AST 22, ALT 22, ALK PHOS 121, TOTAL PROTEIN 5.3, ALBUMIN 2.3. A BRAIN MRI WAS OBTAINED ON 06/05/21. IT REVEALED: 1. No acute intracranial abnormality identified. 2. 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 PATIENT HAS AMBULATED IN THE ROOM TODAY WITH THE ASSISTANCE OF THE PHYSICAL THERAPIST. SHE IS COOPERATING WELL. SHE IS CURRENTLY RECEIVING NORMAL SALINE AT 80 ML/HR, HUMULIN R SLIDING SCALE, OTBS ACHS, LOVENOX 40MG SC DAILY. HER HOME MEDICATIONS OF LIPITOR, TRICOR, FOLIC ACID, SYNTHROID, GLUCOPHAGE, OXYBUTYNIN, PROTONIX, FARXIGA, AND REQUIP WERE RESUMED. WE WILL CONTINUE WITH CURRENT PLAN OF CARE TODAY AND REPLEAT HER MAGNESIUM. PHYSICAL THERAPY WILL CONTINUE TO WORK WITH PATIENT. SHE HAS A PRECERT PENDING AT [facility] IN [place], [place]. OTHERWISE, WE WILL FOLLOW-UP WITH AM LABS AND CONTINUE TO MONITOR. TIME SPENT ON CLINICAL ASSESSMENT, REVIEWING LABS AND IMAGING, DECISION MAKING, AND DOCUMENTATION GREATER THAN 45 MINUTES. - Past Medical Family Social History Past Med/Fam/Surg Hx: No changes since H&P Allergies: Allergies No Known Drug Allergies Allergy (Verified 01/26/20 17:57) - Review of Systems ROS: No change since H&P - Vital Signs and I&O's Vital Signs: Temperature 97.9 F Pulse Rate [Right] 104 Pulse Rate 95 Respiratory Rate 20 Blood Pressure [Right Arm] 145/70 Blood Pressure 110/57 O2 Sat by Pulse Oximetry 97 Intake and Output: Intake & Output 06/06/22 06/07/22 06/08/22 06/09/22 11:59 11:59 11:59 11:59 Intake Total 2742 / 2742 3088 / 3088 2920 / 2920 Balance 2742 / 2742 3088 / 3088 2920 / 2920 - Physical Exam Oriented: Normal Eyes: Normal Ear: Normal Nose: Normal Throat: Normal Respiratory: Generalized, Diminished Cardiovascular: Normal : Normal Auscultation: Bowel Sounds: Normal Palpation: Normal Tenderness: Normal Skin: Normal Musculoskeletal: Normal Psychiatric: Normal Mood Description: Calm Affect: Normal Speech Pattern: Clear, Appropriate - Laboratory and Diagnostics Result Diagrams: 06/08/22 05:26 06/08/22 05:26 Labs: Laboratory WBC 3.4 X10^3/uL (3.6-10.0) L 06/08/22 05:26 RBC 3.06 X10^6/uL (3.5-5.4) L 06/08/22 05:26 Hgb 9.4 g/dL (12.0-16.0) L 06/08/22 05:26 Hct 27.6 % (36.0-47.0) L 06/08/22 05:26 MCV 90.2 fL (80.0-100.0) 06/08/22 05:26 MCH 30.7 pg (27.0-34.0) 06/08/22 05:26 MCHC 34.1 g/dL (33.0-35.0) 06/08/22 05:26 RDW 15.4 % (11.6-16.5) 06/08/22 05:26 Plt Count 235 X10^3/uL (150.0-450.0) 06/08/22 05:26 MPV 9.2 fL (7.4-11.0) 06/08/22 05:26 Neut % (Auto) 56.1 % (42.0-75.0) 06/08/22 05:26 Lymph % (Auto) 31.5 % (21.0-51.0) 06/08/22 05:26 [place] % (Auto) 7.6 % (0.0-13.0) 06/08/22 05:26 Eos % (Auto) 3.8 % (0.9-2.9) H 06/08/22 05:26 Baso % (Auto) 1.0 % (0.2-1.0) 06/08/22 05:26 Neut # (Auto) 1.9 x10^3/uL (2.2-4.8) L 06/08/22 05:26 Lymph # (Auto) 1.1 X10^3/uL (1.3-2.9) L 06/08/22 05:26 [place] # (Auto) 0.3 x10^3/uL (0.3-0.8) 06/08/22 05:26 Eos # (Auto) 0.1 x10^3/uL (0.0-0.2) 06/08/22 05:26 Baso # (Auto) 0.0 X10^3/uL (0.0-0.1) 06/08/22 05:26 Absolute Nucleated RBC 0.0 /100WBC 06/08/22 05:26 Sodium 138 mmol/L (136-145) 06/08/22 05:26 Corrected Sodium 141 mmol/L (136-145) 06/08/22 05:26 Potassium 3.6 mmol/L (3.5-5.1) 06/08/22 05:26 Chloride 104 mmol/L (98-107) 06/08/22 05:26 Carbon Dioxide 25.5 mmol/L (21-32) 06/08/22 05:26 BUN 8 mg/dL (7-18) 06/08/22 05:26 Creatinine 0.73 mg/dL (0.55-1.02) 06/08/22 05:26 Est GFR (MDRD) Af Amer > 60 (>60) 06/08/22 05:26 Est GFR (MDRD) Non-Af > 60 (>60) 06/08/22 05:26 Glucose 229 mg/dL (65-99) H 06/08/22 05:26 POC Glucose (mg/dL) 231 mg/dL (65-99) H 06/08/22 11:21 Calcium 8.5 mg/dL (8.5-10.1) 06/08/22 05:26 Corrected Calcium 9.9 mg/dL (8.5-10.1) 06/08/22 05:26 Magnesium 0.5 mg/dL (2.0-2.9) L 06/08/22 05:26 Total Bilirubin 0.40 mg/dL (0.2-1.0) 06/08/22 05:26 AST 22 Units/L (15-37) 06/08/22 05:26 ALT 22 Units/L (12-78) 06/08/22 05:26 Alkaline Phosphatase 121 Units/L (46-116) H 06/08/22 05:26 Creatine Kinase 87 Units/L (26-192) 06/05/22 21:45 Troponin I High Sens 26.0 ng/L (4.0-60.0) 06/05/22 21:45 Total Protein 5.3 g/dL (6.4-8.2) L 06/08/22 05:26 Albumin 2.3 g/dL (3.4-5.0) L 06/08/22 05:26 Globulin 3.0 g/dL (2.5-4.5) 06/08/22 05:26 Albumin/Globulin Ratio 0.8 Ratio (1.1-2.1) L 06/08/22 05:26 TSH 3rd Generation 2.635 uIU/mL (0.358-3.74) 06/04/22 16:58 Specimen Type Clean catch urine 06/04/22 22:21 Urine Color Yellow (YELLOW) 06/04/22 22:21 Urine Appearance Clear (CLEAR) 06/04/22 22:21 Urine pH 5.0 (5.0 - 8.0) 06/04/22 22:21 Ur Specific [place] 1.020 (1.000-1.030) 06/04/22 22:21 Urine Protein Negative (NEGATIVE) 06/04/22 22:21 Urine Glucose (UA) 4+ (NEGATIVE) 06/04/22 22:21 Urine Ketones 3+ (NEGATIVE) 06/04/22 22:21 Urine Blood Negative (NEGATIVE) 06/04/22 22:21 Urine Nitrite Negative (NEGATIVE) 06/04/22 22:21 Urine Bilirubin Negative (NEGATIVE) 06/04/22 22:21 Urine Urobilinogen Normal (NORMAL) 06/04/22 22:21 Ur Leukocyte Esterase Negative (NEGATIVE) 06/04/22 22:21 - Plan (1) Dehydration Status: Acute Plan: NORMAL SALINE AT 80 ML/HR, HUMULIN R SLIDING SCALE, OTBS ACHS, LOVENOX 40MG SC DAILY, POTASSIUM AND MAGNESIUM PROTOCOLS. RESUME HOME MEDS. PT/OT (2) Orthostatic hypotension Status: Acute (3) Frequent falls Status: Acute (4) Generalized weakness Status: Acute (5) Hypomagnesemia Status: Acute (6) Hyperlipidemia Status: Chronic Qualifiers: Hyperlipidemia type: mixed hyperlipidemia Qualified Code(s): E78.2 - Mixed hyperlipidemia (7) Hypothyroidism Status: Chronic Qualifiers: Hypothyroidism type: acquired Qualified Code(s): E03.9 - Hypothyroidism, unspecified (8) Diabetes mellitus type 2, uncontrolled Status: Chronic Qualifiers: Glycemic state: with hyperglycemia Qualified Code(s): E11.65 - Type 2 diabetes mellitus with hyperglycemia (9) Restless leg syndrome Status: Chronic
[2022-06-08] MEDS: LIPITOR TAB 40 MG PO SCH (20:46)
[2022-06-09] MEDS ORDERED: TYLENOL 325 MG TAB PO PRN (00:05)
[2022-06-09] MEDS: NovoLIN R (or HumuLIN R) SUBCUT PRN ×2 (05:49→11:47)
[2022-06-09] MEDS: NS 1,000 ML IV 1,000 ML IV SCH ×2 (05:49→08:50)
[2022-06-09 06:24] LABS: BASOPHILS % (AUTO) 0.8 % (0.2-1.0); EOSINOPHILS # (AUTO) 0.1 x10^3/uL (0.0-0.2); EOSINOPHILS % (AUTO) 3.5 % (0.9-2.9); HEMATOCRIT 29.8 % (36.0-47.0); LYMPHOCYTES # (AUTO) 1.4 X10^3/uL (1.3-2.9); LYMPHOCYTES % (AUTO) 33.3 % (21.0-51.0); MEAN CORPUSCULAR HEMOGLOBIN 30.4 pg (27.0-34.0); MEAN CORPUSCULAR HGB CONC 33.6 g/dL (33.0-35.0); MEAN CORPUSCULAR VOLUME 90.5 fL (80.0-100.0); MEAN PLATELET VOLUME 9.1 fL (7.4-11.0); MONOCYTES # (AUTO) 0.3 x10^3/uL (0.3-0.8); MONOCYTES % (AUTO) 7.1 % (0.0-13.0); NEUTROPHILS # (AUTO) 2.4 x10^3/uL (2.2-4.8); NEUTROPHILS % (AUTO) 55.3 % (42.0-75.0); RED BLOOD COUNT 3.29 X10^6/uL (3.5-5.4); RED CELL DISTRIBUTION WIDTH 15.7 % (11.6-16.5); WHITE BLOOD COUNT 4.3 X10^3/uL (3.6-10.0)
[2022-06-09 06:41] LABS: ALANINE AMINOTRANSFERASE 26 Units/L (12-78); ALBUMIN 2.5 g/dL (3.4-5.0); ALKALINE PHOSPHATASE 142 Units/L (46-116); ASPARTATE AMINO TRANSFERASE 32 Units/L (15-37); BLOOD UREA NITROGEN 6 mg/dL (7-18); CALCIUM 8.2 mg/dL (8.5-10.1); CARBON DIOXIDE 26.4 mmol/L (21-32); CHLORIDE 104 mmol/L (98-107); COR CA(FOR HYPOALB) 9.4 mg/dL (8.5-10.1); COR NA(FOR HYPERGLY) 139 mmol/L (136-145); CREATININE 0.72 mg/dL (0.55-1.02); MAGNESIUM 1.5 mg/dL (2.0-2.9); SODIUM 136 mmol/L (136-145); TOTAL PROTEIN 5.7 g/dL (6.4-8.2); eGFR NON BLACK RACES > 60 (>60)
[2022-06-09] MEDS: GLUCOPHAGE XR 24-HR PO SCH (08:59)
[2022-06-09] MEDS: PROTONIX TAB 40 MG PO SCH (09:00)
[2022-06-09] MEDS: LOVENOX INJ 40 MG SYR SC SCH (09:00)
[2022-06-09] MEDS: TRICOR TAB 145 MG PO SCH (09:00)
[2022-06-09] MEDS: SYNTHROID 50 mcg TAB PO SCH (09:00)
[2022-06-09] MEDS: REQUIP PO SCH (09:00)
[2022-06-09] MEDS: FOLIC ACID TAB 1 MG PO SCH (09:00)
[2022-06-09] MEDS: OXYBUTYNIN CHLORIDE ER PO SCH (09:00)
[2022-06-09] MEDS: MAGNESIUM SULFATE 1 GRAM/100 mL PREMIX 1 G/100 ML BAG IV PRN ×2 (09:01→10:33)
--- NOTE | 2022-06-09 12:30 | W.DIS.FURT ---
Summary of Discharge Discharge Summary of Date Date of Exam: 06/09/22 Admission Date Date of Admission: 06/04/22 Admission Diagnosis Patient Problems (Updated 06/08/22 @ 12:18 by Shaq Mckenna) Diabetes mellitus type 2, uncontrolled (Chronic) E11.65 Chronic kidney disease (CKD) (Acute) N18.9 Dehydration (Acute) E86.0 Generalized weakness (Acute) R53.1 Frequent falls (Acute) R29.6 Orthostatic hypotension (Acute) I95.1 Hyperlipidemia (Chronic) E78.5 Hypothyroidism (Chronic) E03.9 Restless leg syndrome (Chronic) G25.81 Hypomagnesemia (Acute) E83.42 Hospital Course: PT IS A 77 YEAR OLD FEMALE ADMITTED FOR TREATMENT OF DEHYDRATION, ORTHOSTATIC HYPOTENSION, FREQUENT FALLS, AND GENERALIZED WEAKNESS. SHE HAS A PMH OF ANXIETY, ARTHRITIS, DM II, DYSLIPIDEMIA, GERD, HTN, HYPOTHYROIDISM, CHOLECYSTECTOMY, HYSTERECTOMY, AND RECENT LEFT HUMERUS FRACTURE. HER HOSPITAL TREATMENT INCLUDED: RECEIVING NORMAL SALINE AT 80 ML/HR, HUMULIN R SLIDING SCALE, OTBS ACHS, LOVENOX 40MG SC DAILY. HER HOME MEDICATIONS OF LIPITOR, TRICOR, FOLIC ACID, SYNTHROID, GLUCOPHAGE, OXYBUTYNIN, PROTONIX, FARXIGA, AND REQUIP WERE RESUMED. A BRAIN MRI WAS OBTAINED ON 06/05/21. IT REVEALED: 1. No acute intracranial abnormality identified. 2. 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 PT SYMPTOMS SIGNIFICANTLY IMPROVED AND SHE WAS ABLE TO AMBULATE WITH THE ASSISTANCE OF THE PHYSICAL THERAPIST. PT WAS ACCEPETED AT [facility] IN [place], [place]. DISCHARGED IN STABLE CONDITION. Vital Signs: Vital Signs (72 hours) 06/06/22 16:00 06/06/22 19:00 06/06/22 20:00 Temperature 99.2 F 97.9 F Pulse Rate [Right] 95 H 102 H Respiratory Rate 20 20 Blood Pressure [Right Arm] 138/64 138/63 O2 Sat by Pulse Oximetry 97 97 Oxygen Delivery Method Room Air Room Air Room Air 06/06/22 23:44 06/07/22 03:51 06/07/22 07:00 Temperature 97.6 F 97.5 F L Pulse Rate [Right] 96 H 83 Respiratory Rate 20 20 Blood Pressure [Right Arm] 146/65 134/63 O2 Sat by Pulse Oximetry 98 96 Oxygen Delivery Method Room Air Room Air Room Air 06/07/22 08:00 06/07/22 12:00 06/07/22 16:00 Temperature 99.2 F 98.6 F 98.4 F Pulse Rate [Right] 110 H 92 H 97 H Respiratory Rate 20 20 20 Blood Pressure [Right Arm] 134/63 148/67 155/72 O2 Sat by Pulse Oximetry 98 96 96 Oxygen Delivery Method Room Air Room Air Room Air 06/07/22 19:00 06/07/22 20:00 06/08/22 00:00 Temperature 97.8 F 98 F Pulse Rate [Right] 95 H 117 H Respiratory Rate 18 20 Blood Pressure [Right Arm] 140/65 122/58 O2 Sat by Pulse Oximetry 95 96 Oxygen Delivery Method Room Air Room Air Room Air 06/08/22 03:41 06/08/22 07:00 06/08/22 08:00 Temperature 97.7 F 97.9 F Pulse Rate [Right] 119 H 104 H Respiratory Rate 18 20 Blood Pressure [Right Arm] 114/56 145/70 O2 Sat by Pulse Oximetry 98 97 Oxygen Delivery Method Room Air Room Air Room Air 06/08/22 12:00 06/08/22 16:00 06/08/22 19:00 Temperature 97.0 F L 98.3 F Pulse Rate [Right] 110 H 95 H Respiratory Rate 20 20 Blood Pressure [Right Arm] 106/55 117/58 O2 Sat by Pulse Oximetry 96 99 Oxygen Delivery Method Room Air Room Air Room Air 06/08/22 20:00 06/09/22 00:00 06/09/22 04:00 Temperature 97.4 F L 97.5 F L 97.5 F L Pulse Rate [Right] 96 H 98 H 89 Respiratory Rate 20 20 20 Blood Pressure [Right Arm] 143/67 137/70 143/67 O2 Sat by Pulse Oximetry 99 99 97 Oxygen Delivery Method Room Air Room Air Room Air 06/09/22 07:00 06/09/22 08:00 06/09/22 12:00 Temperature 98 F 98.1 F Pulse Rate [Right] 92 H 86 Respiratory Rate 20 20 Blood Pressure [Right Arm] 122/60 122/57 O2 Sat by Pulse Oximetry 95 98 Oxygen Delivery Method Room Air Room Air Room Air Labs: Laboratory Last Values WBC 4.3 X10^3/uL (3.6-10.0) 06/09/22 05:14 RBC 3.29 X10^6/uL (3.5-5.4) L 06/09/22 05:14 Hgb 10.0 g/dL (12.0-16.0) L 06/09/22 05:14 Hct 29.8 % (36.0-47.0) L 06/09/22 05:14 MCV 90.5 fL (80.0-100.0) 06/09/22 05:14 MCH 30.4 pg (27.0-34.0) 06/09/22 05:14 MCHC 33.6 g/dL (33.0-35.0) 06/09/22 05:14 RDW 15.7 % (11.6-16.5) 06/09/22 05:14 Plt Count 250 X10^3/uL (150.0-450.0) 06/09/22 05:14 MPV 9.1 fL (7.4-11.0) 06/09/22 05:14 Neut % (Auto) 55.3 % (42.0-75.0) 06/09/22 05:14 Lymph % (Auto) 33.3 % (21.0-51.0) 06/09/22 05:14 [place] % (Auto) 7.1 % (0.0-13.0) 06/09/22 05:14 Eos % (Auto) 3.5 % (0.9-2.9) H 06/09/22 05:14 Baso % (Auto) 0.8 % (0.2-1.0) 06/09/22 05:14 Neut # (Auto) 2.4 x10^3/uL (2.2-4.8) 06/09/22 05:14 Lymph # (Auto) 1.4 X10^3/uL (1.3-2.9) 06/09/22 05:14 [place] # (Auto) 0.3 x10^3/uL (0.3-0.8) 06/09/22 05:14 Eos # (Auto) 0.1 x10^3/uL (0.0-0.2) 06/09/22 05:14 Baso # (Auto) 0.0 X10^3/uL (0.0-0.1) 06/09/22 05:14 Absolute Nucleated RBC 0.1 /100WBC 06/09/22 05:14 Sodium 136 mmol/L (136-145) 06/09/22 05:14 Corrected Sodium 139 mmol/L (136-145) 06/09/22 05:14 Potassium 4.0 mmol/L (3.5-5.1) 06/09/22 05:14 Chloride 104 mmol/L (98-107) 06/09/22 05:14 Carbon Dioxide 26.4 mmol/L (21-32) 06/09/22 05:14 BUN 6 mg/dL (7-18) L 06/09/22 05:14 Creatinine 0.72 mg/dL (0.55-1.02) 06/09/22 05:14 Est GFR (MDRD) Af Amer > 60 (>60) 06/09/22 05:14 Est GFR (MDRD) Non-Af > 60 (>60) 06/09/22 05:14 Glucose 232 mg/dL (65-99) H 06/09/22 05:14 POC Glucose (mg/dL) 269 mg/dL (65-99) H 06/09/22 11:40 Calcium 8.2 mg/dL (8.5-10.1) L 06/09/22 05:14 Corrected Calcium 9.4 mg/dL (8.5-10.1) 06/09/22 05:14 Magnesium 1.5 mg/dL (2.0-2.9) L 06/09/22 05:14 Total Bilirubin 0.30 mg/dL (0.2-1.0) 06/09/22 05:14 AST 32 Units/L (15-37) 06/09/22 05:14 ALT 26 Units/L (12-78) 06/09/22 05:14 Alkaline Phosphatase 142 Units/L (46-116) H 06/09/22 05:14 Creatine Kinase 87 Units/L (26-192) 06/05/22 21:45 Troponin I High Sens 26.0 ng/L (4.0-60.0) 06/05/22 21:45 Total Protein 5.7 g/dL (6.4-8.2) L 06/09/22 05:14 Albumin 2.5 g/dL (3.4-5.0) L 06/09/22 05:14 Globulin 3.2 g/dL (2.5-4.5) 06/09/22 05:14 Albumin/Globulin Ratio 0.8 Ratio (1.1-2.1) L 06/09/22 05:14 TSH 3rd Generation 2.635 uIU/mL (0.358-3.74) 06/04/22 16:58 Specimen Type Clean catch urine 06/04/22 22:21 Urine Color Yellow (YELLOW) 06/04/22 22:21 Urine Appearance Clear (CLEAR) 06/04/22 22:21 Urine pH 5.0 (5.0 - 8.0) 06/04/22 22:21 Ur Specific [place] 1.020 (1.000-1.030) 06/04/22 22:21 Urine Protein Negative (NEGATIVE) 06/04/22 22:21 Urine Glucose (UA) 4+ (NEGATIVE) 06/04/22 22:21 Urine Ketones 3+ (NEGATIVE) 06/04/22 22:21 Urine Blood Negative (NEGATIVE) 06/04/22 22:21 Urine Nitrite Negative (NEGATIVE) 06/04/22 22:21 Urine Bilirubin Negative (NEGATIVE) 06/04/22 22:21 Urine Urobilinogen Normal (NORMAL) 06/04/22 22:21 Ur Leukocyte Esterase Negative (NEGATIVE) 06/04/22 22:21 Reason For Visit: ORTHOSTATIC HPOTENSION, TYPE 2 DM UNCONTROLLED Discharge Date Discharge Date: 06/09/22 Discharge Diagnosis All Active Problems (Updated 06/08/22 @ 12:18 by Shaq Mckenna) Fracture of right shoulder (Acute) Diabetes mellitus type 2, uncontrolled (Chronic) Urinary tract infection (Acute) Chronic kidney disease (CKD) (Acute) Hyperglycemia (Acute) UTI (urinary tract infection) (Acute) Poorly controlled diabetes mellitus (Acute) Dehydration (Acute) TIA (transient ischemic attack) (Acute) Generalized weakness (Acute) Frequent falls (Acute) Orthostatic hypotension (Acute) Hyperlipidemia (Chronic) Hypothyroidism (Chronic) Restless leg syndrome (Chronic) Hypomagnesemia (Acute) Plan of Treatment: Continue with present treatment and follow up plan. Pt is to keep follow up appointment as instructed and take medications as ordered. Discharge Medications Discharge Medications: No Known Drug Allergies Allergy (Verified 01/26/20 17:57) Discharge Disposition Assessment: No acute distress noted at time of discharge. Discharge Plan Discharge Plan Hospital Course: PT IS A 77 YEAR OLD FEMALE ADMITTED FOR TREATMENT OF DEHYDRATION, ORTHOSTATIC HYPOTENSION, FREQUENT FALLS, AND GENERALIZED WEAKNESS. SHE HAS A PMH OF ANXIETY, ARTHRITIS, DM II, DYSLIPIDEMIA, GERD, HTN, HYPOTHYROIDISM, CHOLECYSTECTOMY, HYSTERECTOMY, AND RECENT LEFT HUMERUS FRACTURE. HER HOSPITAL TREATMENT INCLUDED: RECEIVING NORMAL SALINE AT 80 ML/HR, HUMULIN R SLIDING SCALE, OTBS ACHS, LOVENOX 40MG SC DAILY. HER HOME MEDICATIONS OF LIPITOR, TRICOR, FOLIC ACID, SYNTHROID, GLUCOPHAGE, OXYBUTYNIN, PROTONIX, FARXIGA, AND REQUIP WERE RESUMED. A BRAIN MRI WAS OBTAINED ON 06/05/21. IT REVEALED: 1. No acute intracranial abnormality identified. 2. 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 PT SYMPTOMS SIGNIFICANTLY IMPROVED AND SHE WAS ABLE TO AMBULATE WITH THE ASSISTANCE OF THE PHYSICAL THERAPIST. PT WAS ACCEPETED AT [facility] IN [place], [place]. DISCHARGED IN STABLE CONDITION. Patient Disposition: SNF Condition: Stable Health Concerns: Post Hospitalization: new medications and changes needed to prevent readmission or further decline. Pt educated and given instructions on all concerns. Care Plan Goals: Problem: Activity Intolerance Goal: Increased tolerance to activity Instructions: Follow provided instructions. Follow up with primary physician as directed. Contact primary care physician or report to the closest Emergency Room if condition worsens. Plan of Treatment: Continue with present treatment and follow up plan. Pt is to keep follow up appointment as instructed and take medications as ordered. Assessment: No acute distress noted at time of discharge. Prescriptions: Continued atorvastatin 40 mg Tablet 40 mg PO QHS oxybutynin chloride 15 mg Tablet Extended Release 24hr 15 mg PO DAILY fenofibrate micronized 134 mg Capsule 134 mg PO DAILY levothyroxine 50 mcg Tablet 50 mcg PO DAILY pantoprazole 40 mg Tablet,Delayed Release (Dr/Ec) 40 mg PO QAM folic acid 1 mg Tablet 1 mg PO DAILY Farxiga 10 mg tablet 1 tab PO QDAY Novolin R Regular U-100 Insuln 100 unit/mL Solution 0 units SUBCUT ACHS PRN0RF metformin 500 mg Tablet Extended Release 24 Hr 1,000 mg PO DAILY 0RF Januvia 100 mg Tablet 100 mg PO DAILY 0RF ropinirole 0.5 mg Tablet 0.5 mg PO BID Qty: 60 3RF Rx Instructions: TAKE ONE TABLET TWICE A DAY Discontinued lisinopril 5 mg Tablet 5 mg PO QHS Orders to Discharge Patient Discharge Orders: Discharge (Routine); Ordered 06/09/22 Ordered By: David Parsons Follow ups/Referrals Follow ups/Referrals: Shaq Mckenna [Primary Care Provider] - 1 WEEK Instructions Activity Restrictions/Additional Instructions: DIET TOLERATED. ACTIVITY TOLERATED.
[2022-06-09] MEDS ORDERED: APLISOL ID ONE (12:31)
[2022-06-09 16:35] VITALS: BP 125/60
== END 2022-06-09 17:00 ==
LOC: ER 15:55 → MED/SURG 15:55
PROVIDERS: ADMIT Internal Medicine; ATTEND Internal Medicine
DX: E03.8 Other specified hypothyroidism; N18.32 Chronic kidney disease, stage 3b; I12.9 Hypertensive chronic kidney disease with stage 1 through stage 4 chronic kidney disease, or unspecified chronic kidney disease; R29.6 Repeated falls; R42 Dizziness and giddiness; I67.89 Other cerebrovascular disease; Z20.822 Contact with and (suspected) exposure to COVID-19; G25.81 Restless legs syndrome; R26.81 Unsteadiness on feet; K21.9 Gastro-esophageal reflux disease without esophagitis; E87.1 Hypo-osmolality and hyponatremia; I95.1 Orthostatic hypotension; E11.65 Type 2 diabetes mellitus with hyperglycemia; E78.2 Mixed hyperlipidemia; M19.90 Unspecified osteoarthritis, unspecified site; E83.42 Hypomagnesemia; R53.1 Weakness; M79.602 Pain in left arm